=== PATIENT | female | born 1930 | race Caucasian/White ===

== ENCOUNTER → 2016-09-07 | Outpatient (CLI) | payer MEDICARE, OTHER ==
[~2016-09-07] MED LIST: CIPROFLOXACIN 55 ML OU; COUMADIN 3MG3 MG/TAB PO; DIFLUCAN PO; DIFLUCAN200 M1 PO; FUROSEMIDE20 MG PO; HYDROCORTISONE2.51 TOP; IMBRUVICA140 MG PO; IPRATROPIUM BROM3 M1 IH; KEFLEX750 M1 PO; LASIX20 M1 PO; LEVOFLOXACIN250 MG PO; LEVOFLOXACIN500 M1 PO; POTASSIUM CH2 MEQ/ML PO; PREDNISONE20 M1 PO; PREMARIN30 GM VG; SIMVASTATIN20 M1 PO; TRAMADOL 50 MG TAB PO; TUSS PO; WARFARIN SOD5 MG PO; XARELTO10 MG PO; XARELTO20 MG PO
== END ==
LOC: LAB 10:11
DX: C91.10 Chronic lymphocytic leukemia of B-cell type not having achieved remission (principal); Z86.718 Personal history of other venous thrombosis and embolism

== ENCOUNTER → 2016-10-12 | Outpatient (CLI) | payer MEDICARE, OTHER | LOC: LAB 16:55 | DX: N30.01 Acute cystitis with hematuria (principal); B96.89 Other specified bacterial agents as the cause of diseases classified elsewhere ==

== ENCOUNTER 2016-10-13 21:00 | Emergency (ER) | payer MEDICARE, OTHER ==
[~2016-10-13 21:00] MED LIST changes: -CIPROFLOXACIN 55 ML OU; -COUMADIN 3MG3 MG/TAB PO; -DIFLUCAN PO; -DIFLUCAN200 M1 PO; -HYDROCORTISONE2.51 TOP; -IPRATROPIUM BROM3 M1 IH; -KEFLEX750 M1 PO; -LASIX20 M1 PO; -POTASSIUM CH2 MEQ/ML PO; -PREDNISONE20 M1 PO; -PREMARIN30 GM VG; -SIMVASTATIN20 M1 PO; -TRAMADOL 50 MG TAB PO; -TUSS PO; -XARELTO10 MG PO; -XARELTO20 MG PO
[2016-10-13] MEDS ORDERED: IPRATROPIUM BROM3 M1 IH (22:56)
[2016-10-13] MEDS ORDERED: TUSS PO (22:56)
[2016-10-13] MEDS ORDERED: PREDNISONE20 M1 PO (22:56)
== END 2016-10-13 23:09 | disposition home or self-care (01) ==
LOC: ED 21:00
DX: J18.9 Pneumonia, unspecified organism (principal); Z85.9 Personal history of malignant neoplasm, unspecified
CPT/HCPCS: J7512

== ENCOUNTER → 2016-10-25 | Outpatient (CLI) | payer MEDICARE, OTHER ==
[~2016-10-25] MED LIST changes: +CIPROFLOXACIN 55 ML OU; +COUMADIN 3MG3 MG/TAB PO; +DIFLUCAN PO; +DIFLUCAN200 M1 PO; +HYDROCORTISONE2.51 TOP; +IPRATROPIUM BROM3 M1 IH; +KEFLEX750 M1 PO; +LASIX20 M1 PO; +POTASSIUM CH2 MEQ/ML PO; +PREDNISONE20 M1 PO; +PREMARIN30 GM VG; +SIMVASTATIN20 M1 PO; +TRAMADOL 50 MG TAB PO; +TUSS PO; +XARELTO10 MG PO; +XARELTO20 MG PO
== END ==
LOC: LAB 10:17
DX: C91.10 Chronic lymphocytic leukemia of B-cell type not having achieved remission (principal)

== ENCOUNTER → 2016-11-01 | Outpatient (CLI) | payer MEDICARE, OTHER | LOC: LAB 14:47 | DX: Z86.718 Personal history of other venous thrombosis and embolism (principal); C91.10 Chronic lymphocytic leukemia of B-cell type not having achieved remission ==

== ENCOUNTER → 2016-11-03 | Outpatient (CLI) | payer MEDICARE, OTHER | LOC: LAB 10:43 | DX: Z86.718 Personal history of other venous thrombosis and embolism (principal); C91.10 Chronic lymphocytic leukemia of B-cell type not having achieved remission; M81.0 Age-related osteoporosis without current pathological fracture ==

== ENCOUNTER → 2016-11-05 | Outpatient (CLI) | payer MEDICARE, OTHER | LOC: LAB 10:30 | DX: Z51.81 Encounter for therapeutic drug level monitoring (principal); Z79.01 Long term (current) use of anticoagulants; Z86.718 Personal history of other venous thrombosis and embolism; C91.10 Chronic lymphocytic leukemia of B-cell type not having achieved remission ==

== ENCOUNTER → 2016-11-11 | Outpatient (CLI) | payer MEDICARE, OTHER ==
[2016-10-13 23:18] VITALS: BP 130/76
== END ==
LOC: LAB 11:36
DX: Z51.81 Encounter for therapeutic drug level monitoring (principal); Z86.718 Personal history of other venous thrombosis and embolism; R09.89 Other specified symptoms and signs involving the circulatory and respiratory systems; R60.9 Edema, unspecified

== ENCOUNTER → 2016-11-23 | Outpatient (CLI) | payer MEDICARE, OTHER ==
[2016-10-13 23:18] VITALS: BP 130/76
== END ==
LOC: LAB 14:44
DX: Z51.81 Encounter for therapeutic drug level monitoring (principal); Z79.01 Long term (current) use of anticoagulants; Z86.718 Personal history of other venous thrombosis and embolism; C91.10 Chronic lymphocytic leukemia of B-cell type not having achieved remission

== ENCOUNTER → 2016-12-20 | Outpatient (CLI) | payer MEDICARE, OTHER ==
[2016-10-13 23:18] VITALS: BP 130/76
== END ==
LOC: LAB 14:36
DX: N30.01 Acute cystitis with hematuria (principal)

== ENCOUNTER → 2016-12-21 | Outpatient (CLI) | payer MEDICARE, OTHER ==
[2016-10-13 23:18] VITALS: BP 130/76
== END ==
LOC: LAB 14:24
DX: C91.10 Chronic lymphocytic leukemia of B-cell type not having achieved remission (principal); Z86.718 Personal history of other venous thrombosis and embolism; Z79.01 Long term (current) use of anticoagulants; Z51.81 Encounter for therapeutic drug level monitoring

== ENCOUNTER → 2017-01-20 | Outpatient (CLI) | payer MEDICARE, OTHER ==
[2016-10-13 23:18] VITALS: BP 130/76
== END ==
LOC: LAB 13:48
DX: C91.10 Chronic lymphocytic leukemia of B-cell type not having achieved remission (principal)

== ENCOUNTER 2017-01-27 08:01 | Inpatient (IN) | payer MEDICARE, OTHER ==
[~2017-01-27] VITALS: Ht 162.6 cm; Wt 64.5 kg
[~2017-01-27 08:01] MED LIST changes: -CIPROFLOXACIN 55 ML OU; -COUMADIN 3MG3 MG/TAB PO; -DIFLUCAN PO; -DIFLUCAN200 M1 PO; -HYDROCORTISONE2.51 TOP; -KEFLEX750 M1 PO; -LASIX20 M1 PO; -POTASSIUM CH2 MEQ/ML PO; -PREMARIN30 GM VG; -SIMVASTATIN20 M1 PO; -TRAMADOL 50 MG TAB PO; -XARELTO10 MG PO; -XARELTO20 MG PO
[2017-02-13] MEDS ORDERED: KEFLEX750 M1 PO (10:45)
[2017-02-13] MEDS ORDERED: COUMADIN 3MG3 MG/TAB PO ×2 (10:45→17:39)
[2017-02-13] MEDS ORDERED: DIFLUCAN PO (10:46)
[2017-02-13 15:44] VITALS: BP 156/60
[2017-02-13] MEDS ORDERED: IMBRUVICA140 MG PO (17:37)
[2017-02-13] MEDS ORDERED: DIFLUCAN200 M1 PO (17:38)
[2017-02-13] MEDS ORDERED: WARFARIN SOD5 MG PO (17:38)
[2017-02-13] MEDS ORDERED: LASIX20 M1 PO (17:39)
[2017-02-13] MEDS ORDERED: TRAMADOL 50 MG TAB PO (17:39)
[2017-02-13] MEDS ORDERED: SIMVASTATIN20 M1 PO (17:40)
[2017-02-13] MEDS ORDERED: POTASSIUM CH2 MEQ/ML PO (17:40)
[2017-02-13 18:33] VITALS: BP 128/54
[2017-02-14 06:24] VITALS: BP 119/49
[2017-02-14 18:13] VITALS: BP 121/55
[2017-02-15 06:18] VITALS: BP 121/54
[2017-02-15 18:15] VITALS: BP 121/55
[2017-02-16 06:16] VITALS: BP 106/56
[2017-02-16] MEDS ORDERED: HYDROCORTISONE2.51 TOP (08:09)
[2017-02-16] MEDS ORDERED: PREMARIN30 GM VG (08:09)
== END 2017-02-16 14:05 | disposition home health service (06) | DRG 758 ==
LOC: MED/SURG 08:01
PROVIDERS: ADMIT Family Medicine
DX: B37.49 Other urogenital candidiasis (principal); C91.10 Chronic lymphocytic leukemia of B-cell type not having achieved remission; N90.4 Leukoplakia of vulva; I10 Essential (primary) hypertension; E78.5 Hyperlipidemia, unspecified; R53.81 Other malaise; F03.90 Unspecified dementia, unspecified severity, without behavioral disturbance, psychotic disturbance, mood disturbance, and anxiety; Z79.01 Long term (current) use of anticoagulants

== ENCOUNTER → 2017-02-07 | Outpatient (CLI) | payer MEDICARE, OTHER ==
[2016-10-13 23:18] VITALS: BP 130/76
[~2017-02-07] MED LIST changes: +CIPROFLOXACIN 55 ML OU; +COUMADIN 3MG3 MG/TAB PO; +DIFLUCAN PO; +DIFLUCAN200 M1 PO; +HYDROCORTISONE2.51 TOP; +KEFLEX750 M1 PO; +LASIX20 M1 PO; +POTASSIUM CH2 MEQ/ML PO; +PREMARIN30 GM VG; +SIMVASTATIN20 M1 PO; +TRAMADOL 50 MG TAB PO; +XARELTO10 MG PO; +XARELTO20 MG PO
== END ==
LOC: LAB 12:44
DX: N30.01 Acute cystitis with hematuria (principal); B37.41 Candidal cystitis and urethritis

== ENCOUNTER 2017-02-10 18:52 | Emergency (ER) | payer MEDICARE, OTHER ==
[~2017-02-10] VITALS: Wt 66.8 kg
[~2017-02-10 18:52] MED LIST changes: -CIPROFLOXACIN 55 ML OU; -COUMADIN 3MG3 MG/TAB PO; -DIFLUCAN PO; -DIFLUCAN200 M1 PO; -HYDROCORTISONE2.51 TOP; -KEFLEX750 M1 PO; -LASIX20 M1 PO; -POTASSIUM CH2 MEQ/ML PO; -PREMARIN30 GM VG; -SIMVASTATIN20 M1 PO; -TRAMADOL 50 MG TAB PO; -XARELTO10 MG PO; -XARELTO20 MG PO
[2017-02-10 20:35] VITALS: BP 139/78
== END 2017-02-10 20:25 | disposition home or self-care (01) ==
LOC: ED 18:52
DX: R31.0 Gross hematuria (principal); B37.49 Other urogenital candidiasis; C91.10 Chronic lymphocytic leukemia of B-cell type not having achieved remission; Z86.718 Personal history of other venous thrombosis and embolism; Z79.01 Long term (current) use of anticoagulants

== ENCOUNTER 2017-02-13 10:26 | Emergency (ER) | payer MEDICARE, OTHER ==
[2017-02-13] MEDS ORDERED: COUMADIN 3MG3 MG/TAB PO ×2 (10:45→17:39)
[2017-02-13] MEDS ORDERED: KEFLEX750 M1 PO (10:45)
[2017-02-13] MEDS ORDERED: DIFLUCAN PO (10:46)
[2017-02-13 14:00] VITALS: BP 146/62
[2017-02-13] MEDS ORDERED: IMBRUVICA140 MG PO (17:37)
[2017-02-13] MEDS ORDERED: DIFLUCAN200 M1 PO (17:38)
[2017-02-13] MEDS ORDERED: WARFARIN SOD5 MG PO (17:38)
[2017-02-13] MEDS ORDERED: LASIX20 M1 PO (17:39)
[2017-02-13] MEDS ORDERED: TRAMADOL 50 MG TAB PO (17:39)
[2017-02-13] MEDS ORDERED: POTASSIUM CH2 MEQ/ML PO (17:40)
[2017-02-13] MEDS ORDERED: SIMVASTATIN20 M1 PO (17:40)
== END 2017-02-13 15:45 | disposition swing bed (61) ==
LOC: ED 10:26
DX: R53.81 Other malaise (principal); R30.0 Dysuria; N39.0 Urinary tract infection, site not specified; C91.10 Chronic lymphocytic leukemia of B-cell type not having achieved remission; F03.90 Unspecified dementia, unspecified severity, without behavioral disturbance, psychotic disturbance, mood disturbance, and anxiety; Z87.442 Personal history of urinary calculi; B37.49 Other urogenital candidiasis; Z79.01 Long term (current) use of anticoagulants; N76.2 Acute vulvitis
CPT/HCPCS: A4353

== ENCOUNTER → 2017-02-24 | Outpatient (CLI) | payer MEDICARE, OTHER ==
[2017-02-16 06:16] VITALS: BP 106/56
[~2017-02-24] MED LIST changes: +CIPROFLOXACIN 55 ML OU; +COUMADIN 3MG3 MG/TAB PO; +DIFLUCAN PO; +DIFLUCAN200 M1 PO; +HYDROCORTISONE2.51 TOP; +KEFLEX750 M1 PO; +LASIX20 M1 PO; +POTASSIUM CH2 MEQ/ML PO; +PREMARIN30 GM VG; +SIMVASTATIN20 M1 PO; +TRAMADOL 50 MG TAB PO; +XARELTO10 MG PO; +XARELTO20 MG PO
== END ==
LOC: LAB 15:20
DX: Z86.718 Personal history of other venous thrombosis and embolism (principal)

== ENCOUNTER → 2017-02-28 | Outpatient (CLI) | payer MEDICARE, OTHER ==
[2017-02-16 06:16] VITALS: BP 106/56
== END ==
LOC: LAB 13:13
DX: Z86.718 Personal history of other venous thrombosis and embolism (principal); Z79.01 Long term (current) use of anticoagulants

== ENCOUNTER → 2017-03-02 | Outpatient (CLI) | payer MEDICARE, OTHER ==
[2017-02-16 06:16] VITALS: BP 106/56
== END ==
LOC: LAB 13:04
DX: Z51.81 Encounter for therapeutic drug level monitoring (principal); Z79.01 Long term (current) use of anticoagulants; Z86.718 Personal history of other venous thrombosis and embolism; C91.10 Chronic lymphocytic leukemia of B-cell type not having achieved remission

== ENCOUNTER → 2017-03-10 | Outpatient (CLI) | payer MEDICARE, OTHER ==
[2017-02-16 06:16] VITALS: BP 106/56
== END ==
LOC: LAB 11:05
DX: E86.0 Dehydration (principal); Z79.01 Long term (current) use of anticoagulants

== ENCOUNTER 2017-03-11 15:55 | Emergency (ER) | payer MEDICARE, OTHER ==
[~2017-03-11] VITALS: Ht 165.1 cm; Wt 65.0 kg
[~2017-03-11 15:55] MED LIST changes: -CIPROFLOXACIN 55 ML OU; -XARELTO10 MG PO; -XARELTO20 MG PO
[2017-03-11] MEDS ORDERED: CIPROFLOXACIN 55 ML OU (20:24)
[2017-03-11] MEDS ORDERED: DIFLUCAN200 M1 PO (20:24)
[2017-03-11 20:35] VITALS: BP 112/72
[2017-03-11] MEDS ORDERED: XARELTO10 MG PO (21:45)
[2017-03-11] MEDS ORDERED: XARELTO20 MG PO (21:48)
== END 2017-03-11 20:35 | disposition home or self-care (01) ==
LOC: ED 15:55
DX: E86.9 Volume depletion, unspecified (principal); E87.1 Hypo-osmolality and hyponatremia; N39.0 Urinary tract infection, site not specified; F03.90 Unspecified dementia, unspecified severity, without behavioral disturbance, psychotic disturbance, mood disturbance, and anxiety; C91.10 Chronic lymphocytic leukemia of B-cell type not having achieved remission; H10.9 Unspecified conjunctivitis; Z79.01 Long term (current) use of anticoagulants; Z86.718 Personal history of other venous thrombosis and embolism; L89.322 Pressure ulcer of left buttock, stage 2
CPT/HCPCS: A4353; J7030

== ENCOUNTER → 2017-03-15 | Outpatient (CLI) | payer MEDICARE, OTHER ==
[2017-03-11 20:35] VITALS: BP 112/72
[~2017-03-15] MED LIST changes: +CIPROFLOXACIN 55 ML OU; +XARELTO10 MG PO; +XARELTO20 MG PO
== END ==
LOC: RAD 10:40
DX: R05 Cough (principal); R91.8 Other nonspecific abnormal finding of lung field

== ENCOUNTER → 2017-03-24 | Outpatient (CLI) | payer MEDICARE, OTHER ==
[2017-03-11 20:35] VITALS: BP 112/72
== END ==
LOC: LAB 10:08
DX: C91.10 Chronic lymphocytic leukemia of B-cell type not having achieved remission (principal); B37.41 Candidal cystitis and urethritis

== ENCOUNTER → 2017-03-28 | Outpatient (CLI) | payer MEDICARE, OTHER ==
[2017-03-11 20:35] VITALS: BP 112/72
== END ==
LOC: LAB 14:22
DX: N30.00 Acute cystitis without hematuria (principal)

== ENCOUNTER → 2017-04-12 | Outpatient (CLI) | payer MEDICARE, OTHER | LOC: LAB 16:15 | DX: Z87.440 Personal history of urinary (tract) infections (principal) ==

== ENCOUNTER → 2017-05-05 | Outpatient (CLI) | payer MEDICARE, OTHER | LOC: RAD 08:59 | DX: N20.0 Calculus of kidney (principal) ==

== ENCOUNTER → 2017-05-05 | Outpatient (CLI) | payer MEDICARE, OTHER | LOC: LAB 18:49 | DX: N39.0 Urinary tract infection, site not specified (principal) ==

== ENCOUNTER → 2017-05-16 | Outpatient (CLI) | payer MEDICARE, OTHER | LOC: LAB 10:10 | DX: C91.10 Chronic lymphocytic leukemia of B-cell type not having achieved remission (principal); Z79.01 Long term (current) use of anticoagulants; I82.A11 Acute embolism and thrombosis of right axillary vein; M81.0 Age-related osteoporosis without current pathological fracture; C85.80 Other specified types of non-Hodgkin lymphoma, unspecified site ==

== ENCOUNTER → 2017-06-01 | Outpatient (CLI) | payer MEDICARE, OTHER ==
[~2017-06-01] MED LIST changes: +AMLODIPINE BESYL5 MG PO; +RISPERDAL 0.20.25 MG PO
== END ==
LOC: LAB 20:02
DX: Z01.83 Encounter for blood typing (principal); C91.10 Chronic lymphocytic leukemia of B-cell type not having achieved remission

== ENCOUNTER → 2017-06-01 | Outpatient (CLI) | payer MEDICARE, OTHER ==
[2017-06-01 13:18] LABS: EOS # 0.2 (0.04-0.40); EOS % 1.1 % (1.0-5.0); MEAN CELL VOLUME 88 fl (78-100); MEAN CORPUSCULAR HEMOGLOBIN 25 pg (27-31); MEAN PLATELET VOLUME 10.7 fl (7.4-10.4); MONO # 0.9 (0.20-0.80); NEU # 5.8 (1.40-6.50); PLATELET COUNT 360 K/mm3 (130-400); RED BLOOD COUNT 2.53 M/mm3 (4.10-5.30); WHITE BLOOD COUNT 14.1 K/mm3 (4.8-10.8)
[2017-06-01 14:11] LABS: HEMATOCRIT 22.3 % (37.0-47.0); HEMOGLOBIN 6.2 g/dL (12.5-16.0); LYMPH# 7.2 (1.50-4.00); MEAN CORPUSCULAR HGB CONC 28 g/dL (33-37); RED CELL DISTRIBUTION WIDTH 19.6 % (11.5-14.5)
== END ==
LOC: LAB 13:07
PROVIDERS: Internal Medicine Hematology & Oncology
DX: C91.10 Chronic lymphocytic leukemia of B-cell type not having achieved remission (principal); C85.90 Non-Hodgkin lymphoma, unspecified, unspecified site; M81.0 Age-related osteoporosis without current pathological fracture

== ENCOUNTER → 2017-06-02 | Outpatient (CLI) | payer MEDICARE, OTHER ==
[~2017-06-02] VITALS: Ht 165.1 cm; Wt 65.0 kg
[2017-06-02] VITALS (10 sets, daily range): BP systolic 105–137; BP diastolic 54–64
--- NOTE | 2017-06-02 10:15 | NUR ---
transfusion is patent, patient describes, "i have to scratch my nose" there are no other c/o.
--- NOTE | 2017-06-02 10:20 | NUR ---
transfusion patent patient without symptom/sign of reaction, blood increased to 125ml/hr.
--- NOTE | 2017-06-02 10:35 | NUR ---
patient continues withouit s/s of reaction, transfusion increased to 225ml/hr
--- NOTE | 2017-06-02 10:45 | NUR ---
transfusion remains patent, without further c/o, currently at 225ml/hr
--- NOTE | 2017-06-02 10:52 | NUR ---
contacted Dr. Rosario at [facility], left message requesting follow-up for patient.
--- NOTE | 2017-06-02 12:20 | NUR ---
discussed with patient need for follow-up H&H, and not yet receiving an order for this, patient is aware and staets she will expect a phone call later today in regards to follow-up.
--- NOTE | 2017-06-02 12:32 | NUR ---
dismissed per w/c to care of [id number], she states she feels "woosey" but this is normal for her, to POV and to self care
== END ==
LOC: AMSURD 09:26
DX: C91.10 Chronic lymphocytic leukemia of B-cell type not having achieved remission (principal)
CPT/HCPCS: J7050

== ENCOUNTER → 2017-06-03 | Outpatient (CLI) | payer MEDICARE, OTHER ==
[2017-06-02 12:35] VITALS: BP 137/64
[2017-06-03 11:18] LABS: HEMATOCRIT 27.6 % (37.0-47.0)
[2017-06-03 11:23] LABS: HEMOGLOBIN 7.9 g/dL (12.5-16.0)
== END ==
LOC: LAB 10:43
PROVIDERS: Internal Medicine
DX: C91.10 Chronic lymphocytic leukemia of B-cell type not having achieved remission (principal)

== ENCOUNTER → 2017-06-15 | Outpatient (CLI) | payer MEDICARE, OTHER ==
[2017-06-02 12:35] VITALS: BP 137/64
[2017-06-15 12:08] LABS: EOS # 0.1 (0.04-0.40); EOS % 0.6 % (1.0-5.0); HEMATOCRIT 25.8 % (37.0-47.0); MEAN CELL VOLUME 86 fl (78-100); MEAN CORPUSCULAR HEMOGLOBIN 25 pg (27-31); MEAN PLATELET VOLUME 10.4 fl (7.4-10.4); MONO # 1.2 (0.20-0.80); NEU # 7.8 (1.40-6.50); PLATELET COUNT 338 K/mm3 (130-400); RED BLOOD COUNT 2.99 M/mm3 (4.10-5.30); WHITE BLOOD COUNT 14.4 K/mm3 (4.8-10.8)
[2017-06-15 12:12] LABS: PROTHROMBIN TIME 11.7 SECONDS (9.0-12.0)
[2017-06-15 12:13] LABS: HEMOGLOBIN 7.5 g/dL (12.5-16.0); LYMPH# 5.2 (1.50-4.00); MEAN CORPUSCULAR HGB CONC 29 g/dL (33-37); RED CELL DISTRIBUTION WIDTH 18.7 % (11.5-14.5)
[2017-06-15 12:15] LABS: BUN/CREATININE RATIO 21.8 (6.0-26.0); POTASSIUM 4.4 mmol/L (3.6-5.0)
== END ==
LOC: LAB 11:34
PROVIDERS: Nurse Practitioner Family
DX: N30.01 Acute cystitis with hematuria (principal)

== ENCOUNTER → 2017-06-30 | Outpatient (CLI) | payer MEDICARE, OTHER ==
[2017-06-02 12:35] VITALS: BP 137/64
[2017-06-30 12:40] LABS: HEMATOCRIT 26.5 % (37.0-47.0)
[2017-06-30 12:51] LABS: HEMOGLOBIN 7.5 g/dL (12.5-16.0)
== END ==
LOC: LAB 12:07
PROVIDERS: Nurse Practitioner Family
DX: D64.9 Anemia, unspecified (principal); C91.10 Chronic lymphocytic leukemia of B-cell type not having achieved remission; N30.00 Acute cystitis without hematuria

== ENCOUNTER → 2017-07-12 | Outpatient (CLI) | payer MEDICARE, OTHER ==
[2017-06-02 12:35] VITALS: BP 137/64
[2017-07-12 10:23] LABS: HEMATOCRIT 25.5 % (37.0-47.0); MEAN CELL VOLUME 86 fl (78-100); MEAN PLATELET VOLUME 10.2 fl (7.4-10.4); PLATELET COUNT 338 K/mm3 (130-400); RED BLOOD COUNT 2.96 M/mm3 (4.10-5.30); WHITE BLOOD COUNT 7.7 K/mm3 (4.8-10.8)
[2017-07-12 10:31] LABS: BUN/CREATININE RATIO 20.1 (6.0-26.0); CALCIUM 9.6 mg/dL (8.4-10.2); POTASSIUM 5.2 mmol/L (3.6-5.0)
[2017-07-12 10:38] LABS: HEMOGLOBIN 7.2 g/dL (12.5-16.0); MEAN CORPUSCULAR HEMOGLOBIN 24 pg (27-31); MEAN CORPUSCULAR HGB CONC 28 g/dL (33-37); RED CELL DISTRIBUTION WIDTH 18.5 % (11.5-14.5)
[2017-07-12 10:39] LABS: LYMPHOCYTE 33 % (20-51); MONOCYTE 7 % (3-10); NEUTROPHILS 57 % (42-75)
[2017-07-12 10:41] LABS: MICROCYTOSIS 1+; OVALOCYTES 1+
== END ==
LOC: RAD 10:04
PROVIDERS: Urology
DX: C91.10 Chronic lymphocytic leukemia of B-cell type not having achieved remission (principal); N30.20 Other chronic cystitis without hematuria; N20.0 Calculus of kidney

== ENCOUNTER → 2017-07-18 | Outpatient (CLI) | payer MEDICARE, OTHER ==
[2017-06-02 12:35] VITALS: BP 137/64
== END ==
LOC: LAB 08:04 → RAD 08:04
DX: N20.0 Calculus of kidney (principal)

== ENCOUNTER → 2017-07-28 | Outpatient (CLI) | payer MEDICARE, OTHER ==
[2017-06-02 12:35] VITALS: BP 137/64
[2017-07-28 23:13] LABS: URINE APPEARANCE CLOUDY; URINE BILIRUBIN NEGATIVE (NEGATIVE); URINE BLOOD 250 ery/uL (NEGATIVE); URINE COLOR YELLOW; URINE GLUCOSE NEGATIVE (NEGATIVE); URINE KETONE NEGATIVE (NEGATIVE); URINE LEUKOCYTE ESTERASE 2+ (NEGATIVE); URINE NITRATE NEGATIVE (NEGATIVE); URINE PROTEIN(semi-quant) 2+ mg/dL (NEGATIVE); URINE UROBILINOGEN NORMAL (NORMAL)
[2017-07-28 23:14] LABS: URINE WBC >50 /hpf (0-3)
== END ==
LOC: LAB 17:08
PROVIDERS: Nurse Practitioner Family
DX: Z87.440 Personal history of urinary (tract) infections (principal); R53.81 Other malaise

== ENCOUNTER → 2017-08-08 | Outpatient (CLI) | payer MEDICARE, OTHER ==
[2017-06-02 12:35] VITALS: BP 137/64
== END ==
LOC: RAD 10:35
DX: N20.0 Calculus of kidney (principal)

== ENCOUNTER → 2017-08-10 | Outpatient (CLI) | payer MEDICARE, OTHER ==
[2017-06-02 12:35] VITALS: BP 137/64
[2017-08-10 10:28] LABS: EOS # 0.1 (0.04-0.40); HEMATOCRIT 29.2 % (37.0-47.0); HEMOGLOBIN 8.5 g/dL (12.5-16.0); LYMPH# 3.1 (1.50-4.00); MEAN CELL VOLUME 82 fl (78-100); MEAN PLATELET VOLUME 9.8 fl (7.4-10.4); MONO # 1.4 (0.20-0.80); NEU # 7.7 (1.40-6.50); PLATELET COUNT 336 K/mm3 (130-400); RED BLOOD COUNT 3.55 M/mm3 (4.10-5.30); WHITE BLOOD COUNT 12.5 K/mm3 (4.8-10.8)
[2017-08-10 10:39] LABS: MEAN CORPUSCULAR HEMOGLOBIN 24 pg (27-31); MEAN CORPUSCULAR HGB CONC 29 g/dL (33-37); RED CELL DISTRIBUTION WIDTH 20.5 % (11.5-14.5)
[2017-08-10 10:48] LABS: PROTHROMBIN TIME 13.9 SECONDS (9.0-12.0)
== END ==
LOC: LAB 07-06 15:52
PROVIDERS: Nurse Practitioner Family
DX: C91.10 Chronic lymphocytic leukemia of B-cell type not having achieved remission (principal); M81.0 Age-related osteoporosis without current pathological fracture; D64.9 Anemia, unspecified; Z86.718 Personal history of other venous thrombosis and embolism

== ENCOUNTER → 2017-09-12 | Outpatient (CLI) | payer MEDICARE, OTHER ==
[2017-06-02 12:35] VITALS: BP 137/64
[2017-09-12 09:53] LABS: HEMATOCRIT 26.2 % (37.0-47.0); MEAN CELL VOLUME 89 fl (78-100); PLATELET COUNT 307 K/mm3 (130-400); RED BLOOD COUNT 2.95 M/mm3 (4.10-5.30); WHITE BLOOD COUNT 8.9 K/mm3 (4.8-10.8)
[2017-09-12 10:12] LABS: BUN/CREATININE RATIO 14.4 (6.0-26.0); CALCIUM 8.3 mg/dL (8.4-10.2); POTASSIUM 4.5 mmol/L (3.6-5.0)
[2017-09-12 10:30] LABS: HEMOGLOBIN 7.1 g/dL (12.5-16.0); MEAN CORPUSCULAR HEMOGLOBIN 24 pg (27-31); MEAN CORPUSCULAR HGB CONC 27 g/dL (33-37); RED CELL DISTRIBUTION WIDTH 19.6 % (11.5-14.5)
[2017-09-12 10:33] LABS: LYMPHOCYTE 14 % (20-51); MONOCYTE 16 % (3-10); NEUTROPHILS 67 % (42-75)
[2017-09-12 23:47] LABS: FOLATE (FOLIC ACID) 6.1 ng/mL (7.0-31.4)
== END ==
LOC: LAB 09:28
PROVIDERS: Nurse Practitioner Family
DX: C91.10 Chronic lymphocytic leukemia of B-cell type not having achieved remission (principal); M81.0 Age-related osteoporosis without current pathological fracture; C85.80 Other specified types of non-Hodgkin lymphoma, unspecified site

== ENCOUNTER → 2017-09-22 | Outpatient (CLI) | payer MEDICARE, OTHER ==
[2017-06-02 12:35] VITALS: BP 137/64
[2017-09-22 10:17] LABS: HEMATOCRIT 27.1 % (37.0-47.0); MEAN CELL VOLUME 89 fl (78-100); MEAN CORPUSCULAR HEMOGLOBIN 25 pg (27-31); MEAN PLATELET VOLUME 9.3 fl (7.4-10.4); PLATELET COUNT 333 K/mm3 (130-400); RED BLOOD COUNT 3.04 M/mm3 (4.10-5.30); WHITE BLOOD COUNT 8.5 K/mm3 (4.8-10.8)
[2017-09-22 10:27] LABS: HEMOGLOBIN 7.5 g/dL (12.5-16.0); LYMPHOCYTE 18 % (20-51); MEAN CORPUSCULAR HGB CONC 28 g/dL (33-37); MONOCYTE 12 % (3-10); NEUTROPHILS 68 % (42-75); RED CELL DISTRIBUTION WIDTH 18.5 % (11.5-14.5)
[2017-09-22 10:29] LABS: HYPOCHROMIA 1+
[2017-09-22 10:38] LABS: PROTHROMBIN TIME 11.9 SECONDS (9.0-12.0)
== END ==
LOC: LAB 09:57
PROVIDERS: Nurse Practitioner Family
DX: D64.9 Anemia, unspecified (principal); C91.10 Chronic lymphocytic leukemia of B-cell type not having achieved remission; Z86.718 Personal history of other venous thrombosis and embolism; Z88.1 Allergy status to other antibiotic agents; Z88.2 Allergy status to sulfonamides

== ENCOUNTER → 2017-10-12 | Outpatient (CLI) | payer MEDICARE, OTHER ==
[2017-06-02 12:35] VITALS: BP 137/64
[2017-10-12 10:44] LABS: BASO # 0.1 (0.02-0.10); EOS # 0.2 (0.04-0.40); EOS % 1.5 % (1.0-5.0); HEMOGLOBIN 8.1 g/dL (12.5-16.0); MEAN CELL VOLUME 87 fl (78-100); MEAN PLATELET VOLUME 9.6 fl (7.4-10.4); MONO # 1.1 (0.20-0.80); NEU # 8.2 (1.40-6.50); PLATELET COUNT 290 K/mm3 (130-400); RED BLOOD COUNT 3.35 M/mm3 (4.10-5.30); RED CELL DISTRIBUTION WIDTH 17.1 % (11.5-14.5); WHITE BLOOD COUNT 11.7 K/mm3 (4.8-10.8)
[2017-10-12 10:53] LABS: BUN/CREATININE RATIO 17.5 (6.0-26.0); CALCIUM 9.2 mg/dL (8.4-10.2); POTASSIUM 4.4 mmol/L (3.6-5.0); TOTAL BILIRUBIN 0.3 mg/dL (0.2-1.3); TOTAL PROTEIN 5.9 g/dL (6.3-8.2)
[2017-10-12 10:54] LABS: MEAN CORPUSCULAR HEMOGLOBIN 24 pg (27-31); MEAN CORPUSCULAR HGB CONC 28 g/dL (33-37)
== END ==
LOC: LAB 10:29
PROVIDERS: Internal Medicine Hematology & Oncology
DX: C91.10 Chronic lymphocytic leukemia of B-cell type not having achieved remission (principal); C85.80 Other specified types of non-Hodgkin lymphoma, unspecified site; M81.0 Age-related osteoporosis without current pathological fracture

== ENCOUNTER → 2017-10-13 | Outpatient (CLI) | payer MEDICARE, OTHER ==
[2017-06-02 12:35] VITALS: BP 137/64
== END ==
LOC: LAB 15:41
DX: N30.01 Acute cystitis with hematuria (principal); Z88.1 Allergy status to other antibiotic agents; Z88.2 Allergy status to sulfonamides

== ENCOUNTER → 2017-10-26 | Outpatient (CLI) | payer MEDICARE, OTHER ==
[2017-06-02 12:35] VITALS: BP 137/64
== END ==
LOC: LAB 16:39
PROVIDERS: Nurse Practitioner
DX: C85.80 Other specified types of non-Hodgkin lymphoma, unspecified site (principal); C91.10 Chronic lymphocytic leukemia of B-cell type not having achieved remission; M81.0 Age-related osteoporosis without current pathological fracture

== ENCOUNTER → 2017-11-09 | Outpatient (CLI) | payer MEDICARE, OTHER ==
[2017-06-02 12:35] VITALS: BP 137/64
[2017-11-09 17:25] LABS: EOS # 0.1 (0.04-0.40); EOS % 0.8 % (1.0-5.0); HEMATOCRIT 30.3 % (37.0-47.0); HEMOGLOBIN 8.6 g/dL (12.5-16.0); LYMPH# 1.7 (1.50-4.00); MEAN CELL VOLUME 87 fl (78-100); MEAN CORPUSCULAR HEMOGLOBIN 25 pg (27-31); MEAN PLATELET VOLUME 11.2 fl (7.4-10.4); MONO # 0.9 (0.20-0.80); NEU # 6.2 (1.40-6.50); PLATELET COUNT 264 K/mm3 (130-400); RED BLOOD COUNT 3.48 M/mm3 (4.10-5.30); RED CELL DISTRIBUTION WIDTH 17.2 % (11.5-14.5); WHITE BLOOD COUNT 8.9 K/mm3 (4.8-10.8)
[2017-11-09 17:26] LABS: MEAN CORPUSCULAR HGB CONC 28 g/dL (33-37)
[2017-11-09 17:38] LABS: ALBUMIN 3.1 g/dL (3.5-5.0); BUN/CREATININE RATIO 19.6 (6.0-26.0); CALCIUM 9.2 mg/dL (8.4-10.2); POTASSIUM 4.3 mmol/L (3.6-5.0); TOTAL BILIRUBIN 0.2 mg/dL (0.2-1.3); TOTAL PROTEIN 5.6 g/dL (6.3-8.2)
== END ==
LOC: LAB 16:34
PROVIDERS: Nurse Practitioner
DX: C91.10 Chronic lymphocytic leukemia of B-cell type not having achieved remission (principal); M81.0 Age-related osteoporosis without current pathological fracture; C85.80 Other specified types of non-Hodgkin lymphoma, unspecified site

== ENCOUNTER → 2017-11-17 | Outpatient (CLI) | payer MEDICARE, OTHER ==
[2017-06-02 12:35] VITALS: BP 137/64
[2017-11-17 14:09] LABS: URINE APPEARANCE CLOUDY; URINE BILIRUBIN NEGATIVE (NEGATIVE); URINE BLOOD 250 ery/uL (NEGATIVE); URINE COLOR YELLOW; URINE GLUCOSE NEGATIVE (NEGATIVE); URINE KETONE NEGATIVE (NEGATIVE); URINE LEUKOCYTE ESTERASE 2+ (NEGATIVE); URINE NITRATE POSITIVE (NEGATIVE); URINE PROTEIN(semi-quant) 2+ mg/dL (NEGATIVE); URINE UROBILINOGEN NORMAL (NORMAL)
[2017-11-17 14:10] LABS: URINE WBC >50 /hpf (0-3)
== END ==
LOC: LAB 13:50
PROVIDERS: Nurse Practitioner
DX: R30.0 Dysuria (principal); Z87.440 Personal history of urinary (tract) infections

== ENCOUNTER 2017-12-06 12:27 | Observation (INO) | payer MEDICARE, OTHER ==
[2017-12-06] VITALS (26 sets, daily range): BP systolic 104–144; BP diastolic 43–80
[~2017-12-06] VITALS: Ht 167.6 cm; Wt 56.4 kg
[~2017-12-06 12:27] MED LIST changes: -DONEPEZIL HCL10 MG PO; -IMBRUVICA280 MG PO; -MYRBETRIQ25 MG PO; -ULTRAM50 M1 PO
[2017-12-06 15:33] LABS: ALBUMIN 2.8 g/dL (3.5-5.0); BUN/CREATININE RATIO 40.7 (6.0-26.0); CALCIUM 9.8 mg/dL (8.4-10.2); POTASSIUM 4.9 mmol/L (3.6-5.0); TOTAL BILIRUBIN 0.2 mg/dL (0.2-1.3); TOTAL PROTEIN 5.4 g/dL (6.3-8.2)
[2017-12-06] MEDS ORDERED: IMBRUVICA280 MG PO (16:48)
[2017-12-06] MEDS ORDERED: DONEPEZIL HCL10 MG PO (16:50)
--- NOTE | 2017-12-06 19:14 | NUR ---
report to acosta more
[2017-12-07] VITALS: BP 116/54
[2017-12-07 00:20] VITALS: BP 126/58
[2017-12-07 03:00] VITALS: BP 151/70
[2017-12-07 06:33] VITALS: BP 148/71
[2017-12-07 07:04] LABS: BASO # 0.1 (0.02-0.10); EOS # 0.1 (0.04-0.40); EOS % 0.7 % (1.0-5.0); HEMATOCRIT 27.1 % (37.0-47.0); HEMOGLOBIN 8.5 g/dL (12.5-16.0); LYMPH# 1.9 (1.50-4.00); MEAN CELL VOLUME 86 fl (78-100); MEAN CORPUSCULAR HEMOGLOBIN 27 pg (27-31); MEAN CORPUSCULAR HGB CONC 31 g/dL (33-37); MEAN PLATELET VOLUME 10.4 fl (7.4-10.4); MONO # 1.2 (0.20-0.80); NEU # 8.9 (1.40-6.50); PLATELET COUNT 246 K/mm3 (130-400); RED BLOOD COUNT 3.15 M/mm3 (4.10-5.30); RED CELL DISTRIBUTION WIDTH 15.4 % (11.5-14.5); WHITE BLOOD COUNT 12.5 K/mm3 (4.8-10.8)
--- NOTE | 2017-12-07 07:20 | NUR ---
Pt alert and oriented and pleasant. Reports she is feeling better and some stronger today. Pt ambulates independently with slow steady gait. Pt does grimace and grab at low abd/pelvic area while sitting in recliner. Pt then requests pain pill
[2017-12-07] MEDS ORDERED: ULTRAM50 M1 PO (08:00)
[2017-12-07] MEDS ORDERED: MYRBETRIQ25 MG PO (08:00)
--- NOTE | 2017-12-07 10:49 | NUR ---
Pt has caregivers in her home. Home Health services are not needed at this time.
[2017-12-07 11:30] VITALS: BP 126/96
--- NOTE | 2017-12-07 12:35 | NUR ---
Discharge instructions reviewed with pt and her friend Dilma. Both verbalizes understanding. Pt dismissed with friend via wheelchair with all belongings
== END 2017-12-07 12:33 | disposition home or self-care (01) ==
LOC: ED 12:27 → MED/SURG 14:10
PROVIDERS: Nurse Practitioner Family; ADMIT Physician Assistant
DX: C91.10 Chronic lymphocytic leukemia of B-cell type not having achieved remission (principal); D63.8 Anemia in other chronic diseases classified elsewhere; G30.9 Alzheimer's disease, unspecified; F02.80 Dementia in other diseases classified elsewhere, unspecified severity, without behavioral disturbance, psychotic disturbance, mood disturbance, and anxiety; Z79.01 Long term (current) use of anticoagulants; Z86.718 Personal history of other venous thrombosis and embolism; N32.89 Other specified disorders of bladder; Z87.440 Personal history of urinary (tract) infections
CPT/HCPCS: G0378; J1940; P9016

== ENCOUNTER → 2017-12-06 | Outpatient (CLI) | payer MEDICARE, OTHER ==
[2017-06-02 12:35] VITALS: BP 137/64
[~2017-12-06] MED LIST changes: +DONEPEZIL HCL10 MG PO; +IMBRUVICA280 MG PO; +MYRBETRIQ25 MG PO; +ULTRAM50 M1 PO
[2017-12-06 12:19] LABS: BASO # 0.1 (0.02-0.10); EOS % 0.1 % (1.0-5.0); MEAN CELL VOLUME 86 fl (78-100); MEAN PLATELET VOLUME 10.2 fl (7.4-10.4); MONO # 0.9 (0.20-0.80); PLATELET COUNT 314 K/mm3 (130-400); RED CELL DISTRIBUTION WIDTH 17.5 % (11.5-14.5); WHITE BLOOD COUNT 14.2 K/mm3 (4.8-10.8)
[2017-12-06 12:23] LABS: HEMATOCRIT 19.2 % (37.0-47.0); HEMOGLOBIN 5.4 g/dL (12.5-16.0); MEAN CORPUSCULAR HEMOGLOBIN 24 pg (27-31); MEAN CORPUSCULAR HGB CONC 28 g/dL (33-37); RED BLOOD COUNT 2.23 M/mm3 (4.10-5.30)
== END ==
LOC: LAB 11:51
PROVIDERS: Nurse Practitioner Family
DX: C91.10 Chronic lymphocytic leukemia of B-cell type not having achieved remission (principal); C85.80 Other specified types of non-Hodgkin lymphoma, unspecified site; M81.0 Age-related osteoporosis without current pathological fracture

== ENCOUNTER 2017-12-08 08:48 | Emergency (ER) | payer MEDICARE, OTHER ==
[~2017-12-08] VITALS: Wt 61.6 kg
[~2017-12-08 08:48] MED LIST changes: +DONEPEZIL HCL10 MG PO; +IMBRUVICA280 MG PO; +MYRBETRIQ25 MG PO; +ULTRAM50 M1 PO
[2017-12-08 09:35] LABS: BASO # 0.1 (0.02-0.10); EOS % 0.3 % (1.0-5.0); LYMPH# 1.8 (1.50-4.00); MEAN CELL VOLUME 89 fl (78-100); MEAN CORPUSCULAR HEMOGLOBIN 27 pg (27-31); MEAN CORPUSCULAR HGB CONC 30 g/dL (33-37); MONO # 1.4 (0.20-0.80); PLATELET COUNT 266 K/mm3 (130-400); RED BLOOD COUNT 2.68 M/mm3 (4.10-5.30); RED CELL DISTRIBUTION WIDTH 16.7 % (11.5-14.5); WHITE BLOOD COUNT 14.5 K/mm3 (4.8-10.8)
[2017-12-08 09:36] LABS: HEMATOCRIT 23.8 % (37.0-47.0); HEMOGLOBIN 7.2 g/dL (12.5-16.0); NEU # 10.9 (1.40-6.50)
[2017-12-08 09:54] LABS: ALBUMIN 2.7 g/dL (3.5-5.0); BUN/CREATININE RATIO 53.7 (6.0-26.0); CALCIUM 9.1 mg/dL (8.4-10.2); POTASSIUM 4.6 mmol/L (3.6-5.0); TOTAL BILIRUBIN 0.4 mg/dL (0.2-1.3); TOTAL PROTEIN 5.1 g/dL (6.3-8.2)
[2017-12-08 12:07] VITALS: BP 124/54
== END 2017-12-08 11:52 | disposition short-term general hospital (02) ==
LOC: ED 08:48
PROVIDERS: Physician Assistant
DX: D50.0 Iron deficiency anemia secondary to blood loss (chronic) (principal); E86.0 Dehydration; C91.10 Chronic lymphocytic leukemia of B-cell type not having achieved remission; Z86.718 Personal history of other venous thrombosis and embolism; Z79.01 Long term (current) use of anticoagulants
CPT/HCPCS: J7120

== ENCOUNTER → 2017-12-19 | Outpatient (CLI) | payer MEDICARE, OTHER ==
[2017-12-08 12:07] VITALS: BP 124/54
[2017-12-19 12:14] LABS: HEMATOCRIT 32.1 % (37.0-47.0); HEMOGLOBIN 9.6 g/dL (12.5-16.0); MEAN CELL VOLUME 95 fl (78-100); MEAN CORPUSCULAR HEMOGLOBIN 29 pg (27-31); MEAN CORPUSCULAR HGB CONC 30 g/dL (33-37); MEAN PLATELET VOLUME 10.7 fl (7.4-10.4); PLATELET COUNT 91 K/mm3 (130-400); RED BLOOD COUNT 3.37 M/mm3 (4.10-5.30); RED CELL DISTRIBUTION WIDTH 16.7 % (11.5-14.5); WHITE BLOOD COUNT 10.3 K/mm3 (4.8-10.8)
[2017-12-19 13:17] LABS: LYMPHOCYTE 12 % (20-51); MONOCYTE 12 % (3-10); NEUTROPHILS 75 % (42-75)
== END ==
LOC: LAB 12:00
PROVIDERS: Internal Medicine Hematology & Oncology
DX: C85.90 Non-Hodgkin lymphoma, unspecified, unspecified site (principal); C91.10 Chronic lymphocytic leukemia of B-cell type not having achieved remission; M81.0 Age-related osteoporosis without current pathological fracture

== ENCOUNTER → 2017-12-25 | Outpatient (CLI) | payer MEDICARE, OTHER ==
[2017-12-08 12:07] VITALS: BP 124/54
[2017-12-25 10:51] LABS: EOS # 0.1 (0.04-0.40); EOS % 1.8 % (1.0-5.0); HEMATOCRIT 30.9 % (37.0-47.0); HEMOGLOBIN 9.2 g/dL (12.5-16.0); LYMPH# 1.2 (1.50-4.00); MEAN CELL VOLUME 94 fl (78-100); MEAN CORPUSCULAR HEMOGLOBIN 28 pg (27-31); MEAN CORPUSCULAR HGB CONC 30 g/dL (33-37); MEAN PLATELET VOLUME 10.2 fl (7.4-10.4); MONO # 0.7 (0.20-0.80); NEU # 5.1 (1.40-6.50); PLATELET COUNT 290 K/mm3 (130-400); RED CELL DISTRIBUTION WIDTH 16.4 % (11.5-14.5); WHITE BLOOD COUNT 7.2 K/mm3 (4.8-10.8)
== END ==
LOC: LAB 10:43
PROVIDERS: Nurse Practitioner Family
DX: Z86.718 Personal history of other venous thrombosis and embolism (principal)

== ENCOUNTER → 2018-01-04 | Outpatient (CLI) | payer MEDICARE, OTHER ==
[2017-12-08 12:07] VITALS: BP 124/54
[2018-01-04 11:13] LABS: HEMOGLOBIN 9.1 g/dL (12.5-16.0); MEAN CELL VOLUME 93 fl (78-100); MEAN CORPUSCULAR HEMOGLOBIN 27 pg (27-31); MEAN PLATELET VOLUME 9.9 fl (7.4-10.4); PLATELET COUNT 299 K/mm3 (130-400); RED BLOOD COUNT 3.35 M/mm3 (4.10-5.30); RED CELL DISTRIBUTION WIDTH 16.8 % (11.5-14.5); WHITE BLOOD COUNT 8.9 K/mm3 (4.8-10.8)
[2018-01-04 11:23] LABS: MEAN CORPUSCULAR HGB CONC 29 g/dL (33-37)
[2018-01-04 11:29] LABS: HYPOCHROMIA 1+; LYMPHOCYTE 19 % (20-51); MONOCYTE 8 % (3-10); NEUTROPHILS 70 % (42-75)
== END ==
LOC: LAB 10:53
PROVIDERS: Internal Medicine Hematology & Oncology
DX: C91.10 Chronic lymphocytic leukemia of B-cell type not having achieved remission (principal); C85.80 Other specified types of non-Hodgkin lymphoma, unspecified site; M81.0 Age-related osteoporosis without current pathological fracture

== ENCOUNTER → 2018-01-25 | Outpatient (CLI) | payer MEDICARE, OTHER ==
[2018-01-25 16:14] LABS: BASO # 0.1 (0.02-0.10); EOS # 0.1 (0.04-0.40); EOS % 1.2 % (1.0-5.0); HEMATOCRIT 29.8 % (37.0-47.0); HEMOGLOBIN 8.8 g/dL (12.5-16.0); LYMPH# 1.3 (1.50-4.00); MEAN CELL VOLUME 90 fl (78-100); MEAN CORPUSCULAR HEMOGLOBIN 27 pg (27-31); MEAN CORPUSCULAR HGB CONC 30 g/dL (33-37); MEAN PLATELET VOLUME 10.5 fl (7.4-10.4); MONO # 0.8 (0.20-0.80); NEU # 5.4 (1.40-6.50); PLATELET COUNT 274 K/mm3 (130-400); RED BLOOD COUNT 3.32 M/mm3 (4.10-5.30); RED CELL DISTRIBUTION WIDTH 16.9 % (11.5-14.5); WHITE BLOOD COUNT 7.7 K/mm3 (4.8-10.8)
== END ==
LOC: LAB 15:56
PROVIDERS: Internal Medicine Hematology & Oncology
DX: C91.10 Chronic lymphocytic leukemia of B-cell type not having achieved remission (principal); C85.80 Other specified types of non-Hodgkin lymphoma, unspecified site; M81.0 Age-related osteoporosis without current pathological fracture

== ENCOUNTER → 2018-02-07 | Outpatient (CLI) | payer MEDICARE, OTHER ==
[2018-02-07 15:49] LABS: HEMATOCRIT 28.7 % (37.0-47.0); HEMOGLOBIN 8.3 g/dL (12.5-16.0); MEAN CELL VOLUME 90 fl (78-100); MEAN CORPUSCULAR HEMOGLOBIN 26 pg (27-31); MEAN PLATELET VOLUME 10.5 fl (7.4-10.4); PLATELET COUNT 243 K/mm3 (130-400); RED BLOOD COUNT 3.19 M/mm3 (4.10-5.30); RED CELL DISTRIBUTION WIDTH 16.9 % (11.5-14.5); WHITE BLOOD COUNT 7.7 K/mm3 (4.8-10.8)
[2018-02-07 16:07] LABS: ALBUMIN 2.9 g/dL (3.5-5.0); BUN/CREATININE RATIO 22.9 (6.0-26.0); CALCIUM 8.2 mg/dL (8.4-10.2); POTASSIUM 4.7 mmol/L (3.6-5.0); TOTAL BILIRUBIN 0.3 mg/dL (0.2-1.3); TOTAL PROTEIN 5.7 g/dL (6.3-8.2)
[2018-02-07 17:18] LABS: MEAN CORPUSCULAR HGB CONC 29 g/dL (33-37)
[2018-02-07 17:19] LABS: LYMPHOCYTE 10 % (20-51); MONOCYTE 9 % (3-10); NEUTROPHILS 78 % (42-75)
[2018-02-07 17:22] LABS: HYPOCHROMIA 3+
== END ==
LOC: LAB 15:19
PROVIDERS: Internal Medicine Hematology & Oncology
DX: C91.10 Chronic lymphocytic leukemia of B-cell type not having achieved remission (principal); C85.80 Other specified types of non-Hodgkin lymphoma, unspecified site; M81.0 Age-related osteoporosis without current pathological fracture

== ENCOUNTER → 2018-02-22 | Outpatient (CLI) | payer MEDICARE, OTHER ==
[2018-02-22 20:05] LABS: HEMATOCRIT 30.6 % (37.0-47.0); HEMOGLOBIN 9.1 g/dL (12.5-16.0); MEAN CELL VOLUME 87 fl (78-100); MEAN CORPUSCULAR HEMOGLOBIN 26 pg (27-31); MEAN CORPUSCULAR HGB CONC 30 g/dL (33-37); MEAN PLATELET VOLUME 11.1 fl (7.4-10.4); PLATELET COUNT 324 K/mm3 (130-400); RED BLOOD COUNT 3.51 M/mm3 (4.10-5.30); RED CELL DISTRIBUTION WIDTH 16.8 % (11.5-14.5); WHITE BLOOD COUNT 6.2 K/mm3 (4.8-10.8)
[2018-02-22 22:08] LABS: BAND 3 % (0-10); LYMPHOCYTE 15 % (20-51); MONOCYTE 16 % (3-10); MYELOCYTE 1 % (0-0); NEUTROPHILS 62 % (42-75); POLYCHROMASIA 1+
== END ==
LOC: LAB 17:58
PROVIDERS: Internal Medicine Hematology & Oncology
DX: C91.10 Chronic lymphocytic leukemia of B-cell type not having achieved remission (principal); M81.0 Age-related osteoporosis without current pathological fracture; C85.80 Other specified types of non-Hodgkin lymphoma, unspecified site

== ENCOUNTER → 2018-02-23 | Outpatient (CLI) | payer MEDICARE, OTHER ==
[2018-02-23 14:17] LABS: HEMATOCRIT 33.1 % (37.0-47.0); HEMOGLOBIN 9.7 g/dL (12.5-16.0); MEAN CELL VOLUME 87 fl (78-100); MEAN CORPUSCULAR HEMOGLOBIN 26 pg (27-31); MEAN PLATELET VOLUME 10.7 fl (7.4-10.4); PLATELET COUNT 337 K/mm3 (130-400); RED BLOOD COUNT 3.81 M/mm3 (4.10-5.30); RED CELL DISTRIBUTION WIDTH 16.9 % (11.5-14.5); WHITE BLOOD COUNT 7.3 K/mm3 (4.8-10.8)
[2018-02-23 14:18] LABS: ALBUMIN 3.3 g/dL (3.5-5.0); BUN/CREATININE RATIO 18.9 (6.0-26.0); CALCIUM 8.7 mg/dL (8.4-10.2); POTASSIUM 4.7 mmol/L (3.6-5.0); TOTAL BILIRUBIN 0.5 mg/dL (0.2-1.3); TOTAL PROTEIN 6.3 g/dL (6.3-8.2)
[2018-02-23 14:48] LABS: URINE APPEARANCE CLOUDY; URINE BILIRUBIN NEGATIVE (NEGATIVE); URINE BLOOD 50 ery/uL (NEGATIVE); URINE COLOR LIGHT YELLOW; URINE GLUCOSE NEGATIVE (NEGATIVE); URINE KETONE NEGATIVE (NEGATIVE); URINE LEUKOCYTE ESTERASE 2+ (NEGATIVE); URINE NITRATE NEGATIVE (NEGATIVE); URINE PROTEIN(semi-quant) 1+ mg/dL (NEGATIVE); URINE UROBILINOGEN NORMAL (NORMAL); URINE WBC >50 /hpf (0-3)
[2018-02-23 15:28] LABS: MEAN CORPUSCULAR HGB CONC 29 g/dL (33-37)
[2018-02-23 15:32] LABS: BAND 1 % (0-10); LYMPHOCYTE 14 % (20-51); NEUTROPHILS 74 % (42-75)
[2018-02-23 15:33] LABS: MONOCYTE 10 % (3-10)
[2018-02-23 15:45] LABS: NUCLEATED RED BLOOD CELL 2 (0-6)
[2018-02-23 15:46] LABS: HYPOCHROMIA 1+
== END ==
LOC: RAD 13:52
PROVIDERS: Physician Assistant
DX: R53.83 Other fatigue (principal); R29.6 Repeated falls; R06.00 Dyspnea, unspecified; N30.00 Acute cystitis without hematuria

== ENCOUNTER 2018-02-28 10:25 | Emergency (ER) | payer MEDICARE, OTHER ==
[2018-02-28] MEDS ORDERED: CIPRO 500MG TA500 MG PO (11:03)
[2018-02-28] MEDS ORDERED: FOLIC ACID1 MG PO (11:04)
[2018-02-28 12:56] LABS: ALBUMIN 2.9 g/dL (3.5-5.0); BUN/CREATININE RATIO 23.7 (6.0-26.0); CALCIUM 8.6 mg/dL (8.4-10.2); POTASSIUM 5.1 mmol/L (3.6-5.0); TOTAL BILIRUBIN 0.7 mg/dL (0.2-1.3); TOTAL PROTEIN 5.9 g/dL (6.3-8.2)
[2018-02-28 13:09] LABS: HEMATOCRIT 29.2 % (37.0-47.0); HEMOGLOBIN 8.9 g/dL (12.5-16.0); MEAN CELL VOLUME 85 fl (78-100); MEAN CORPUSCULAR HEMOGLOBIN 26 pg (27-31); MEAN CORPUSCULAR HGB CONC 31 g/dL (33-37); MEAN PLATELET VOLUME 10.4 fl (7.4-10.4); PLATELET COUNT 280 K/mm3 (130-400); RED BLOOD COUNT 3.43 M/mm3 (4.10-5.30); RED CELL DISTRIBUTION WIDTH 17.1 % (11.5-14.5); WHITE BLOOD COUNT 11.4 K/mm3 (4.8-10.8)
[2018-02-28 13:16] LABS: BAND 5 % (0-10); LYMPHOCYTE 6 % (20-51); METAMYELOCYTE 3 % (0-0); MONOCYTE 8 % (3-10); MYELOCYTE 2 % (0-0)
[2018-02-28 13:17] LABS: NEUTROPHILS 73 % (42-75)
[2018-02-28 13:24] LABS: PH-URINE 5.5 (5.0 - 8.0); URINE APPEARANCE CLOUDY; URINE BILIRUBIN NEGATIVE (NEGATIVE); URINE BLOOD 50 ery/uL (NEGATIVE); URINE COLOR YELLOW; URINE GLUCOSE NEGATIVE (NEGATIVE); URINE KETONE NEGATIVE (NEGATIVE); URINE LEUKOCYTE ESTERASE 2+ (NEGATIVE); URINE NITRATE NEGATIVE (NEGATIVE); URINE PROTEIN(semi-quant) 2+ mg/dL (NEGATIVE); URINE UROBILINOGEN NORMAL (NORMAL); URINE WBC >50 /hpf (0-3)
[2018-02-28 15:31] VITALS: BP 128/46
== END 2018-02-28 15:04 | disposition other institution (70) ==
LOC: ED 10:25
PROVIDERS: Nurse Practitioner Primary Care
DX: N10 Acute pyelonephritis (principal); S32.10XA Unspecified fracture of sacrum, initial encounter for closed fracture; M79.662 Pain in left lower leg; M79.661 Pain in right lower leg; M79.652 Pain in left thigh; M79.651 Pain in right thigh; F03.90 Unspecified dementia, unspecified severity, without behavioral disturbance, psychotic disturbance, mood disturbance, and anxiety; I12.9 Hypertensive chronic kidney disease with stage 1 through stage 4 chronic kidney disease, or unspecified chronic kidney disease; N18.9 Chronic kidney disease, unspecified; Z91.81 History of falling; Z88.0 Allergy status to penicillin; Z88.2 Allergy status to sulfonamides; Z79.899 Other long term (current) drug therapy; C95.10 Chronic leukemia of unspecified cell type not having achieved remission
CPT/HCPCS: J3010; J7030

== ENCOUNTER 2018-02-28 14:37 | Inpatient (IN) | payer MEDICARE, OTHER ==
[~2018-02-28] VITALS: Ht 165.1 cm; Wt 58.5 kg
[~2018-02-28 14:37] MED LIST changes: +CIPRO 500MG TA500 MG PO; +FOLIC ACID1 MG PO
[2018-02-28 14:52] VITALS: BP 128/46
[2018-02-28 15:00] VITALS: BP 128/46
[2018-02-28 18:28] VITALS: BP 125/57
[2018-02-28 23:00] VITALS: BP 130/68
[2018-03-01 03:00] VITALS: BP 126/65
[2018-03-01 06:10] LABS: HEMATOCRIT 25.9 % (37.0-47.0); MEAN CELL VOLUME 87 fl (78-100); MEAN CORPUSCULAR HEMOGLOBIN 26 pg (27-31); MEAN CORPUSCULAR HGB CONC 30 g/dL (33-37); MEAN PLATELET VOLUME 10.6 fl (7.4-10.4); PLATELET COUNT 248 K/mm3 (130-400); RED BLOOD COUNT 2.98 M/mm3 (4.10-5.30); RED CELL DISTRIBUTION WIDTH 17.5 % (11.5-14.5); WHITE BLOOD COUNT 9.4 K/mm3 (4.8-10.8)
[2018-03-01 06:15] LABS: ALBUMIN 2.3 g/dL (3.5-5.0); BUN/CREATININE RATIO 22.5 (6.0-26.0); CALCIUM 7.6 mg/dL (8.4-10.2); POTASSIUM 4.5 mmol/L (3.6-5.0); TOTAL BILIRUBIN 0.2 mg/dL (0.2-1.3); TOTAL PROTEIN 4.9 g/dL (6.3-8.2)
[2018-03-01 06:19] LABS: HEMOGLOBIN 7.7 g/dL (12.5-16.0)
[2018-03-01 06:21] VITALS: BP 123/69
[2018-03-01 06:32] LABS: ACANTHROCYTES 1+; BAND 4 % (0-10); LYMPHOCYTE 8 % (20-51); METAMYELOCYTE 4 % (0-0); MONOCYTE 6 % (3-10); MYELOCYTE 5 % (0-0); NEUTROPHILS 73 % (42-75); OVALOCYTES 1+
[2018-03-01 11:09] VITALS: BP 115/63
[2018-03-01 15:07] VITALS: BP 124/62
[2018-03-01 18:21] VITALS: BP 113/61
[2018-03-01 22:44] VITALS: BP 116/59
[2018-03-02 03:10] VITALS: BP 145/67
[2018-03-02 06:13] LABS: HEMATOCRIT 25.8 % (37.0-47.0); MEAN CELL VOLUME 87 fl (78-100); MEAN CORPUSCULAR HEMOGLOBIN 26 pg (27-31); MEAN CORPUSCULAR HGB CONC 30 g/dL (33-37); MEAN PLATELET VOLUME 9.9 fl (7.4-10.4); PLATELET COUNT 238 K/mm3 (130-400); RED BLOOD COUNT 2.97 M/mm3 (4.10-5.30); RED CELL DISTRIBUTION WIDTH 17.3 % (11.5-14.5); WHITE BLOOD COUNT 8.8 K/mm3 (4.8-10.8)
[2018-03-02 06:14] LABS: HEMOGLOBIN 7.6 g/dL (12.5-16.0)
[2018-03-02 06:21] LABS: BAND 5 % (0-10); HYPOCHROMIA 1+; LYMPHOCYTE 11 % (20-51); METAMYELOCYTE 3 % (0-0); MONOCYTE 4 % (3-10); MYELOCYTE 4 % (0-0); NEUTROPHILS 71 % (42-75); OVALOCYTES 1+
[2018-03-02 06:28] LABS: BUN/CREATININE RATIO 24.5 (6.0-26.0); CALCIUM 7.8 mg/dL (8.4-10.2); POTASSIUM 4.2 mmol/L (3.6-5.0)
[2018-03-02 06:31] VITALS: BP 129/63
[2018-03-02 11:36] VITALS: BP 102/61
[2018-03-02 14:57] VITALS: BP 101/60
[2018-03-02 18:20] VITALS: BP 124/64
[2018-03-02 23:08] VITALS: BP 120/61
[2018-03-03 03:08] VITALS: BP 131/62
[2018-03-03 06:07] VITALS: BP 132/57
[2018-03-03 07:05] LABS: ALBUMIN 2.7 g/dL (3.5-5.0); BUN/CREATININE RATIO 23.9 (6.0-26.0); CALCIUM 8.4 mg/dL (8.4-10.2); POTASSIUM 4.4 mmol/L (3.6-5.0); TOTAL BILIRUBIN 0.1 mg/dL (0.2-1.3); TOTAL PROTEIN 5.6 g/dL (6.3-8.2)
[2018-03-03 07:22] LABS: HEMATOCRIT 30.8 % (37.0-47.0); HEMOGLOBIN 9.2 g/dL (12.5-16.0); MEAN CELL VOLUME 87 fl (78-100); MEAN CORPUSCULAR HEMOGLOBIN 26 pg (27-31); MEAN CORPUSCULAR HGB CONC 30 g/dL (33-37); MEAN PLATELET VOLUME 11.1 fl (7.4-10.4); PLATELET COUNT 266 K/mm3 (130-400); RED BLOOD COUNT 3.53 M/mm3 (4.10-5.30); RED CELL DISTRIBUTION WIDTH 17.6 % (11.5-14.5); WHITE BLOOD COUNT 10.6 K/mm3 (4.8-10.8)
[2018-03-03 07:39] LABS: BAND 2 % (0-10); LYMPHOCYTE 10 % (20-51); METAMYELOCYTE 9 % (0-0); MONOCYTE 9 % (3-10); MYELOCYTE 2 % (0-0); NEUTROPHILS 65 % (42-75)
[2018-03-03 07:40] LABS: OVALOCYTES 1+
[2018-03-03 11:07] VITALS: BP 117/61
== END 2018-03-03 14:04 | disposition swing bed (61) | DRG 543 ==
LOC: MED/SURG 14:37
PROVIDERS: Nurse Practitioner Family; ADMIT Nurse Practitioner Primary Care
DX: M84.454A Pathological fracture, pelvis, initial encounter for fracture (principal); N10 Acute pyelonephritis; C91.10 Chronic lymphocytic leukemia of B-cell type not having achieved remission; N18.9 Chronic kidney disease, unspecified; F03.90 Unspecified dementia, unspecified severity, without behavioral disturbance, psychotic disturbance, mood disturbance, and anxiety; I12.9 Hypertensive chronic kidney disease with stage 1 through stage 4 chronic kidney disease, or unspecified chronic kidney disease; M48.061 Spinal stenosis, lumbar region without neurogenic claudication; D63.1 Anemia in chronic kidney disease
CPT/HCPCS: J0696; J1650; J2270; J7030

== ENCOUNTER → 2018-04-18 | Outpatient (CLI) | payer MEDICARE, OTHER ==
[2018-03-22 08:16] VITALS: BP 143/72
[~2018-04-18] MED LIST changes: +DESENEX2% TP; +DOCUSATE SOD100 MG PO; +DURAGESIC1 EAC1 TD; +PEG 335017 GM/Dose PO; +PHENAZOPYRIDINE PO; +ZITHROMAX 250M250 MG PO
[2018-04-18 05:36] LABS: HEMATOCRIT 28.9 % (37.0-47.0); HEMOGLOBIN 8.5 g/dL (12.5-16.0); MEAN CELL VOLUME 90 fl (78-100); MEAN CORPUSCULAR HEMOGLOBIN 26 pg (27-31); PLATELET COUNT 215 K/mm3 (130-400); RED BLOOD COUNT 3.22 M/mm3 (4.10-5.30); WHITE BLOOD COUNT 5.1 K/mm3 (4.8-10.8)
[2018-04-18 05:45] LABS: MEAN CORPUSCULAR HGB CONC 29 g/dL (33-37)
[2018-04-18 05:50] LABS: ALBUMIN 2.2 g/dL (3.5-5.0); CALCIUM 8.3 mg/dL (8.4-10.2); POTASSIUM 4.4 mmol/L (3.6-5.0); TOTAL BILIRUBIN 0.5 mg/dL (0.2-1.3); TOTAL PROTEIN 4.3 g/dL (6.3-8.2)
[2018-04-18 06:15] LABS: LYMPHOCYTE 21 % (20-51); MONOCYTE 18 % (3-10); NEUTROPHILS 58 % (42-75)
[2018-04-18 06:16] LABS: OVALOCYTES 1+
== END ==
LOC: LAB 05:15
PROVIDERS: Internal Medicine Hematology & Oncology
DX: C91.10 Chronic lymphocytic leukemia of B-cell type not having achieved remission (principal); C85.80 Other specified types of non-Hodgkin lymphoma, unspecified site; M81.0 Age-related osteoporosis without current pathological fracture

== ENCOUNTER → 2018-05-01 | Outpatient (CLI) | payer MEDICARE, OTHER ==
[2018-03-22 08:16] VITALS: BP 143/72
[~2018-05-01] MED LIST changes: +NOVAPLUS L60 MG/0.6 SQ
[2018-05-01 20:41] LABS: HEMATOCRIT 32.5 % (37.0-47.0); HEMOGLOBIN 9.7 g/dL (12.5-16.0); MEAN CELL VOLUME 90 fl (78-100); MEAN CORPUSCULAR HEMOGLOBIN 27 pg (27-31); MEAN CORPUSCULAR HGB CONC 30 g/dL (33-37); MEAN PLATELET VOLUME 10.9 fl (7.4-10.4); PLATELET COUNT 250 K/mm3 (130-400); RED CELL DISTRIBUTION WIDTH 19.4 % (11.5-14.5); WHITE BLOOD COUNT 7.2 K/mm3 (4.8-10.8)
[2018-05-01 20:42] LABS: LYMPHOCYTE 19 % (20-51); MONOCYTE 14 % (3-10); NEUTROPHILS 63 % (42-75)
[2018-05-01 20:48] LABS: ALBUMIN 2.8 g/dL (3.5-5.0); CALCIUM 8.1 mg/dL (8.4-10.2); POTASSIUM 3.9 mmol/L (3.6-5.0); TOTAL BILIRUBIN 0.5 mg/dL (0.2-1.3); TOTAL PROTEIN 5.3 g/dL (6.3-8.2)
== END ==
LOC: LAB 12:25
PROVIDERS: Internal Medicine Hematology & Oncology
DX: C91.10 Chronic lymphocytic leukemia of B-cell type not having achieved remission (principal); C85.80 Other specified types of non-Hodgkin lymphoma, unspecified site; M81.0 Age-related osteoporosis without current pathological fracture

== ENCOUNTER 2018-05-05 18:07 | Emergency (ER) | payer MEDICARE, OTHER ==
[~2018-05-05] VITALS: Wt 64.1 kg
[~2018-05-05 18:07] MED LIST changes: -NOVAPLUS L60 MG/0.6 SQ
[2018-05-05] MEDS ORDERED: RISPERDAL 0.20.25 MG PO (19:10)
[2018-05-05 19:42] VITALS: BP 161/58
[2018-05-05] MEDS ORDERED: NOVAPLUS L60 MG/0.6 SQ (20:04)
== END 2018-05-05 20:18 | disposition home or self-care (01) ==
LOC: ED 18:07
DX: R79.89 Other specified abnormal findings of blood chemistry (principal); R60.0 Localized edema; F03.90 Unspecified dementia, unspecified severity, without behavioral disturbance, psychotic disturbance, mood disturbance, and anxiety; Z86.718 Personal history of other venous thrombosis and embolism; Z85.6 Personal history of leukemia; Z79.899 Other long term (current) drug therapy; Z79.891 Long term (current) use of opiate analgesic; Z79.01 Long term (current) use of anticoagulants
CPT/HCPCS: J1650

== ENCOUNTER → 2018-05-05 | Outpatient (CLI) | payer MEDICARE, OTHER ==
[2018-03-22 08:16] VITALS: BP 143/72
[2018-05-05 15:10] LABS: HEMOGLOBIN 9.7 g/dL (12.5-16.0); MEAN CELL VOLUME 91 fl (78-100); MEAN CORPUSCULAR HEMOGLOBIN 27 pg (27-31); MEAN PLATELET VOLUME 10.3 fl (7.4-10.4); PLATELET COUNT 237 K/mm3 (130-400); RED BLOOD COUNT 3.62 M/mm3 (4.10-5.30); WHITE BLOOD COUNT 7.9 K/mm3 (4.8-10.8)
[2018-05-05 15:42] LABS: ALBUMIN 2.8 g/dL (3.5-5.0); CALCIUM 8.7 mg/dL (8.4-10.2); POTASSIUM 5.4 mmol/L (3.6-5.0); TOTAL BILIRUBIN 0.4 mg/dL (0.2-1.3); TOTAL PROTEIN 5.4 g/dL (6.3-8.2)
[2018-05-05 15:53] LABS: MEAN CORPUSCULAR HGB CONC 29 g/dL (33-37); RED CELL DISTRIBUTION WIDTH 19.9 % (11.5-14.5)
[2018-05-05 15:55] LABS: D-DIMER 1.82 mg/L FEU (0.15-0.50)
[2018-05-05 16:18] LABS: URINE COLOR LT YELLOW
[2018-05-05 16:19] LABS: URINE APPEARANCE HAZY; URINE BILIRUBIN NEGATIVE (NEGATIVE); URINE BLOOD TRACE (NEGATIVE); URINE GLUCOSE NEGATIVE (NEGATIVE); URINE KETONE NEGATIVE (NEGATIVE); URINE NITRATE NEGATIVE (NEGATIVE); URINE PROTEIN(semi-quant) TRACE mg/dL (NEGATIVE); URINE UROBILINOGEN NORMAL (NORMAL)
[2018-05-05 16:20] LABS: URINE LEUKOCYTE ESTERASE 1+ (NEGATIVE); URINE MUCUS PRESENT (NOT PRESENT)
[2018-05-05 16:21] LABS: HYPOCHROMIA 2+; LYMPHOCYTE 25 % (20-51); MONOCYTE 10 % (3-10); NEUTROPHILS 64 % (42-75)
== END ==
LOC: LAB 14:43
PROVIDERS: Family Medicine
DX: C91.10 Chronic lymphocytic leukemia of B-cell type not having achieved remission (principal); R60.0 Localized edema; Z86.718 Personal history of other venous thrombosis and embolism

== ENCOUNTER → 2018-05-08 | Outpatient (CLI) | payer MEDICARE, OTHER ==
[2018-05-05 19:42] VITALS: BP 161/58
[~2018-05-08] MED LIST changes: +NOVAPLUS L60 MG/0.6 SQ
== END ==
LOC: RAD 10:12
DX: R60.0 Localized edema (principal); R79.1 Abnormal coagulation profile; Z86.718 Personal history of other venous thrombosis and embolism

== ENCOUNTER → 2018-05-18 | Outpatient (CLI) | payer MEDICARE, OTHER ==
[2018-05-05 19:42] VITALS: BP 161/58
[2018-05-18 15:47] LABS: HEMATOCRIT 30.4 % (37.0-47.0); MEAN CELL VOLUME 93 fl (78-100); MEAN CORPUSCULAR HEMOGLOBIN 28 pg (27-31); MEAN CORPUSCULAR HGB CONC 30 g/dL (33-37); MEAN PLATELET VOLUME 11.4 fl (7.4-10.4); PLATELET COUNT 228 K/mm3 (130-400); RED BLOOD COUNT 3.26 M/mm3 (4.10-5.30)
[2018-05-18 16:41] LABS: RED CELL DISTRIBUTION WIDTH 20.4 % (11.5-14.5)
[2018-05-18 18:09] LABS: BAND 1 % (0-10); HYPOCHROMIA 1+; LYMPHOCYTE 23 % (20-51); MONOCYTE 6 % (3-10); NEUTROPHILS 69 % (42-75); POLYCHROMASIA 1+
== END ==
LOC: LAB 14:51
PROVIDERS: Internal Medicine Hematology & Oncology
DX: C91.10 Chronic lymphocytic leukemia of B-cell type not having achieved remission (principal); C85.80 Other specified types of non-Hodgkin lymphoma, unspecified site; M81.0 Age-related osteoporosis without current pathological fracture

== ENCOUNTER → 2018-06-15 | Outpatient (CLI) | payer MEDICARE, OTHER ==
[2018-06-15 17:36] LABS: HEMATOCRIT 29.7 % (37.0-47.0); HEMOGLOBIN 9.1 g/dL (12.5-16.0); MEAN CELL VOLUME 91 fl (78-100); MEAN CORPUSCULAR HEMOGLOBIN 28 pg (27-31); MEAN CORPUSCULAR HGB CONC 31 g/dL (33-37); MEAN PLATELET VOLUME 10.6 fl (7.4-10.4); PLATELET COUNT 244 K/mm3 (130-400); RED BLOOD COUNT 3.25 M/mm3 (4.10-5.30); RED CELL DISTRIBUTION WIDTH 17.6 % (11.5-14.5); WHITE BLOOD COUNT 4.1 K/mm3 (4.8-10.8)
[2018-06-15 17:54] LABS: ALBUMIN 3.3 g/dL (3.5-5.0); CALCIUM 8.6 mg/dL (8.4-10.2); TOTAL BILIRUBIN 0.3 mg/dL (0.2-1.3); TOTAL PROTEIN 5.8 g/dL (6.3-8.2)
[2018-06-15 18:30] LABS: HYPOCHROMIA 1+; LYMPHOCYTE 30 % (20-51); MONOCYTE 20 % (3-10); NEUTROPHILS 48 % (42-75)
== END ==
LOC: LAB 17:03
PROVIDERS: Internal Medicine Hematology & Oncology
DX: C91.10 Chronic lymphocytic leukemia of B-cell type not having achieved remission (principal); C85.80 Other specified types of non-Hodgkin lymphoma, unspecified site; M81.0 Age-related osteoporosis without current pathological fracture

== ENCOUNTER → 2018-06-18 | Outpatient (CLI) | payer MEDICARE, OTHER ==
[2018-06-19 12:26] LABS: URINE APPEARANCE CLOUDY; URINE BILIRUBIN NEGATIVE (NEGATIVE); URINE COLOR YELLOW; URINE GLUCOSE NEGATIVE (NEGATIVE); URINE KETONE NEGATIVE (NEGATIVE); URINE PROTEIN(semi-quant) 2+ mg/dL (NEGATIVE); URINE UROBILINOGEN NORMAL (NORMAL)
[2018-06-19 12:27] LABS: URINE BLOOD 250 ery/uL (NEGATIVE); URINE LEUKOCYTE ESTERASE 2+ (NEGATIVE); URINE NITRATE POSITIVE (NEGATIVE); URINE WBC >50 /hpf (0-3)
== END ==
LOC: LAB 19:15
PROVIDERS: Family Medicine
DX: N39.0 Urinary tract infection, site not specified (principal); R30.0 Dysuria

== ENCOUNTER 2018-07-02 10:39 | Emergency (ER) | payer MEDICARE, OTHER ==
[~2018-07-02] VITALS: Ht 167.6 cm; Wt 63.6 kg
[2018-07-02 10:55] VITALS: BP 140/69
[2018-07-02 11:44] LABS: HEMATOCRIT 27.6 % (37.0-47.0); HEMOGLOBIN 8.5 g/dL (12.5-16.0); MEAN CELL VOLUME 91 fl (78-100); MEAN CORPUSCULAR HEMOGLOBIN 28 pg (27-31); MEAN CORPUSCULAR HGB CONC 31 g/dL (33-37); MEAN PLATELET VOLUME 10.5 fl (7.4-10.4); PLATELET COUNT 288 K/mm3 (130-400); RED BLOOD COUNT 3.04 M/mm3 (4.10-5.30); RED CELL DISTRIBUTION WIDTH 16.8 % (11.5-14.5); WHITE BLOOD COUNT 10.7 K/mm3 (4.8-10.8)
[2018-07-02] MEDS ORDERED: DURAGESIC50 MCG/PAT TD (11:52)
[2018-07-02] MEDS ORDERED: FEOSOL325 MG PO (11:53)
[2018-07-02 12:12] LABS: URINE APPEARANCE CLOUDY; URINE BILIRUBIN NEGATIVE (NEGATIVE); URINE BLOOD 50 ery/uL (NEGATIVE); URINE COLOR ORANG; URINE GLUCOSE NEGATIVE (NEGATIVE); URINE KETONE NEGATIVE (NEGATIVE); URINE LEUKOCYTE ESTERASE 2+ (NEGATIVE); URINE NITRATE NEGATIVE (NEGATIVE); URINE PROTEIN(semi-quant) 2+ mg/dL (NEGATIVE); URINE UROBILINOGEN NORMAL (NORMAL); URINE WBC >50 /hpf (0-3)
[2018-07-02 12:16] LABS: BAND 1 % (0-10); LYMPHOCYTE 7 % (20-51); MONOCYTE 12 % (3-10); NEUTROPHILS 80 % (42-75)
[2018-07-02] MEDS ORDERED: DIFLUCAN200 M1 PO (12:30)
[2018-07-02] MEDS ORDERED: PREMARIN30 GM VG (12:30)
[2018-07-02] MEDS ORDERED: MACROBID 100 M100 MG PO (12:30)
== END 2018-07-02 12:40 | disposition home or self-care (01) ==
LOC: ED 10:39
PROVIDERS: Family Medicine
DX: N30.90 Cystitis, unspecified without hematuria (principal); N95.2 Postmenopausal atrophic vaginitis; B37.3 Candidiasis of vulva and vagina; F03.90 Unspecified dementia, unspecified severity, without behavioral disturbance, psychotic disturbance, mood disturbance, and anxiety; Z85.6 Personal history of leukemia; Z79.899 Other long term (current) drug therapy

== ENCOUNTER → 2018-07-13 | Outpatient (CLI) | payer MEDICARE, OTHER ==
[2018-07-02 10:55] VITALS: BP 140/69
[~2018-07-13] MED LIST changes: +DURAGESIC50 MCG/PAT TD; +FEOSOL325 MG PO; +MACROBID 100 M100 MG PO
[2018-07-13 11:55] LABS: POTASSIUM 4.3 mmol/L (3.6-5.0); TOTAL PROTEIN 5.6 g/dL (6.3-8.2)
[2018-07-13 12:05] LABS: EOS # 0.1 (0.04-0.40); EOS % 1.6 % (1.0-5.0); HEMOGLOBIN 8.6 g/dL (12.5-16.0); MEAN CELL VOLUME 93 fl (78-100); MEAN CORPUSCULAR HEMOGLOBIN 28 pg (27-31); MEAN CORPUSCULAR HGB CONC 30 g/dL (33-37); MEAN PLATELET VOLUME 10.9 fl (7.4-10.4); MONO # 0.9 (0.20-0.80); NEU # 6.4 (1.40-6.50); PLATELET COUNT 266 K/mm3 (130-400); RED BLOOD COUNT 3.13 M/mm3 (4.10-5.30); RED CELL DISTRIBUTION WIDTH 17.1 % (11.5-14.5); WHITE BLOOD COUNT 8.6 K/mm3 (4.8-10.8)
[2018-07-13 13:33] LABS: ALBUMIN 3.1 g/dL (3.5-5.0); CALCIUM 8.5 mg/dL (8.4-10.2); TOTAL BILIRUBIN 0.4 mg/dL (0.2-1.3)
== END ==
LOC: LAB 11:24
PROVIDERS: Internal Medicine Hematology & Oncology
DX: C91.10 Chronic lymphocytic leukemia of B-cell type not having achieved remission (principal); C85.90 Non-Hodgkin lymphoma, unspecified, unspecified site; M81.0 Age-related osteoporosis without current pathological fracture

== ENCOUNTER → 2018-08-18 | Outpatient (CLI) | payer MEDICARE, OTHER ==
[2018-08-18 20:51] LABS: URINE APPEARANCE CLOUDY; URINE BILIRUBIN NEGATIVE (NEGATIVE); URINE BLOOD 50 ery/uL (NEGATIVE); URINE COLOR YELLOW; URINE GLUCOSE NEGATIVE (NEGATIVE); URINE KETONE NEGATIVE (NEGATIVE); URINE NITRATE NEGATIVE (NEGATIVE); URINE PROTEIN(semi-quant) TRACE mg/dL (NEGATIVE); URINE UROBILINOGEN NORMAL (NORMAL)
[2018-08-18 20:52] LABS: URINE LEUKOCYTE ESTERASE 2+ (NEGATIVE); URINE WBC >50 /hpf (0-3)
== END ==
LOC: LAB 19:11
PROVIDERS: Family Medicine
DX: R30.0 Dysuria (principal); R39.15 Urgency of urination

== ENCOUNTER → 2018-08-21 | Outpatient (CLI) | payer MEDICARE, OTHER ==
[2018-08-21 17:37] LABS: ALBUMIN 3.1 g/dL (3.5-5.0); CALCIUM 8.6 mg/dL (8.4-10.2); POTASSIUM 4.3 mmol/L (3.6-5.0); TOTAL BILIRUBIN 0.4 mg/dL (0.2-1.3); TOTAL PROTEIN 5.9 g/dL (6.3-8.2)
[2018-08-21 17:49] LABS: HEMATOCRIT 29.4 % (37.0-47.0); HEMOGLOBIN 8.7 g/dL (12.5-16.0); MEAN CELL VOLUME 93 fl (78-100); MEAN CORPUSCULAR HEMOGLOBIN 27 pg (27-31); MEAN CORPUSCULAR HGB CONC 30 g/dL (33-37); PLATELET COUNT 220 K/mm3 (130-400); RED BLOOD COUNT 3.18 M/mm3 (4.10-5.30); RED CELL DISTRIBUTION WIDTH 16.8 % (11.5-14.5); WHITE BLOOD COUNT 8.5 K/mm3 (4.8-10.8)
[2018-08-21 18:28] LABS: HYPOCHROMIA 2+; LYMPHOCYTE 12 % (20-51); MONOCYTE 10 % (3-10); NEUTROPHILS 76 % (42-75)
[2018-08-21 18:29] LABS: MICROCYTOSIS 1+
== END ==
LOC: LAB 15:55
PROVIDERS: Internal Medicine Hematology & Oncology
DX: C91.10 Chronic lymphocytic leukemia of B-cell type not having achieved remission (principal); L03.90 Cellulitis, unspecified; M79.675 Pain in left toe(s)

== ENCOUNTER → 2018-09-29 | Outpatient (CLI) | payer MEDICARE, OTHER ==
[~2018-09-29] MED LIST changes: +ACETAMINOPHEN500 M5 PO; +ALBUTEROL2.5 MG/3 M IH; +GOOD NEIGH1200 MG/15 PO; +PYRIDIUM100 M1 PO; +ZOFRAN ODT4 MG PO
[2018-09-29 17:32] LABS: CALCIUM 8.6 mg/dL (8.4-10.2); POTASSIUM 4.7 mmol/L (3.6-5.0); TOTAL BILIRUBIN 0.3 mg/dL (0.2-1.3); TOTAL PROTEIN 5.7 g/dL (6.3-8.2)
[2018-09-29 23:03] LABS: HEMATOCRIT 29.6 % (37.0-47.0); HEMOGLOBIN 8.8 g/dL (12.5-16.0); MEAN CELL VOLUME 93 fl (78-100); MEAN CORPUSCULAR HEMOGLOBIN 28 pg (27-31); MEAN CORPUSCULAR HGB CONC 30 g/dL (33-37); RED BLOOD COUNT 3.17 M/mm3 (4.10-5.30); WHITE BLOOD COUNT 7.5 K/mm3 (4.8-10.8)
[2018-09-29 23:04] LABS: MEAN PLATELET VOLUME 10.9 fl (7.4-10.4); PLATELET COUNT 280 K/mm3 (130-400); RED CELL DISTRIBUTION WIDTH 17.4 % (11.5-14.5)
[2018-09-29 23:06] LABS: LYMPHOCYTE 13 % (20-51); MONOCYTE 11 % (3-10); NEUTROPHILS 72 % (42-75)
== END ==
LOC: LAB 16:43
PROVIDERS: Internal Medicine Hematology & Oncology
DX: C91.10 Chronic lymphocytic leukemia of B-cell type not having achieved remission (principal); C85.90 Non-Hodgkin lymphoma, unspecified, unspecified site; M81.0 Age-related osteoporosis without current pathological fracture

== ENCOUNTER 2018-10-01 10:53 | Emergency (ER) | payer MEDICARE, OTHER ==
[~2018-10-01] VITALS: Wt 65.9 kg
[~2018-10-01 10:53] MED LIST changes: -ACETAMINOPHEN500 M5 PO; -ALBUTEROL2.5 MG/3 M IH; -GOOD NEIGH1200 MG/15 PO; -PYRIDIUM100 M1 PO; -ZOFRAN ODT4 MG PO
[2018-10-01 11:43] LABS: URINE APPEARANCE HAZY; URINE BILIRUBIN NEGATIVE (NEGATIVE); URINE BLOOD 250 ery/uL (NEGATIVE); URINE COLOR YELLOW; URINE GLUCOSE NEGATIVE (NEGATIVE); URINE KETONE NEGATIVE (NEGATIVE); URINE LEUKOCYTE ESTERASE 2+ (NEGATIVE); URINE NITRATE NEGATIVE (NEGATIVE); URINE PROTEIN(semi-quant) TRACE mg/dL (NEGATIVE); URINE UROBILINOGEN NORMAL (NORMAL); URINE WBC >50 /hpf (0-3)
[2018-10-01 11:44] LABS: URINE MUCUS PRESENT (NOT PRESENT)
[2018-10-01] MEDS ORDERED: MACROBID 100 M100 MG PO (11:50)
[2018-10-01 12:21] VITALS: BP 169/68
[2018-10-01] MEDS ORDERED: IMBRUVICA280 MG PO (13:13)
[2018-10-01] MEDS ORDERED: ACETAMINOPHEN500 M5 PO (13:14)
[2018-10-01] MEDS ORDERED: GOOD NEIGH1200 MG/15 PO (13:15)
[2018-10-01] MEDS ORDERED: ALBUTEROL2.5 MG/3 M IH (13:15)
[2018-10-01] MEDS ORDERED: ZOFRAN ODT4 MG PO (13:16)
[2018-10-01] MEDS ORDERED: PYRIDIUM100 M1 PO (13:17)
[2018-10-01] MEDS ORDERED: TRAMADOL 50 MG TAB PO (13:17)
== END 2018-10-01 12:33 | disposition home or self-care (01) ==
LOC: ED 10:53
PROVIDERS: Family Medicine
DX: N30.90 Cystitis, unspecified without hematuria (principal); N95.2 Postmenopausal atrophic vaginitis; F03.90 Unspecified dementia, unspecified severity, without behavioral disturbance, psychotic disturbance, mood disturbance, and anxiety; C91.10 Chronic lymphocytic leukemia of B-cell type not having achieved remission; Z86.718 Personal history of other venous thrombosis and embolism; Z90.710 Acquired absence of both cervix and uterus

== ENCOUNTER → 2018-10-04 | Outpatient (CLI) | payer MEDICARE, OTHER ==
[2018-10-01 12:21] VITALS: BP 169/68
[~2018-10-04] MED LIST changes: +ACETAMINOPHEN500 M5 PO; +ALBUTEROL2.5 MG/3 M IH; +GOOD NEIGH1200 MG/15 PO; +PYRIDIUM100 M1 PO; +ZOFRAN ODT4 MG PO
[2018-10-04 12:03] LABS: HEMATOCRIT 30.4 % (37.0-47.0); MEAN CELL VOLUME 94 fl (78-100); MEAN CORPUSCULAR HEMOGLOBIN 28 pg (27-31); MEAN CORPUSCULAR HGB CONC 30 g/dL (33-37); MEAN PLATELET VOLUME 10.3 fl (7.4-10.4); PLATELET COUNT 232 K/mm3 (130-400); RED BLOOD COUNT 3.24 M/mm3 (4.10-5.30); RED CELL DISTRIBUTION WIDTH 17.1 % (11.5-14.5); WHITE BLOOD COUNT 10.3 K/mm3 (4.8-10.8)
[2018-10-04 12:10] LABS: ALBUMIN 3.2 g/dL (3.5-5.0); CALCIUM 8.4 mg/dL (8.4-10.2); POTASSIUM 4.7 mmol/L (3.6-5.0); TOTAL BILIRUBIN 0.6 mg/dL (0.2-1.3)
[2018-10-04 12:34] LABS: LYMPHOCYTE 9 % (20-51); MONOCYTE 10 % (3-10); NEUTROPHILS 81 % (42-75)
[2018-10-04 12:35] LABS: HYPOCHROMIA 1+
== END ==
LOC: LAB 11:28
PROVIDERS: Family Medicine
DX: C91.10 Chronic lymphocytic leukemia of B-cell type not having achieved remission (principal); N39.0 Urinary tract infection, site not specified

== ENCOUNTER → 2018-10-05 | Outpatient (CLI) | payer MEDICARE, OTHER ==
[2018-10-01 12:21] VITALS: BP 169/68
[2018-10-06 09:53] LABS: URINE WBC >50 /hpf (0-3)
== END ==
LOC: LAB 09:37
PROVIDERS: Family Medicine
DX: R50.9 Fever, unspecified (principal)

== ENCOUNTER 2018-10-06 09:11 | Emergency (ER) | payer MEDICARE, OTHER ==
[~2018-10-06] VITALS: Wt 64.8 kg
[2018-10-06 10:12] LABS: HEMATOCRIT 29.1 % (37.0-47.0); HEMOGLOBIN 8.7 g/dL (12.5-16.0); MEAN CELL VOLUME 93 fl (78-100); MEAN CORPUSCULAR HEMOGLOBIN 28 pg (27-31); MEAN CORPUSCULAR HGB CONC 30 g/dL (33-37); MEAN PLATELET VOLUME 10.5 fl (7.4-10.4); PLATELET COUNT 211 K/mm3 (130-400); RED BLOOD COUNT 3.12 M/mm3 (4.10-5.30); RED CELL DISTRIBUTION WIDTH 16.8 % (11.5-14.5)
[2018-10-06 10:29] LABS: CALCIUM 8.4 mg/dL (8.4-10.2); POTASSIUM 4.4 mmol/L (3.6-5.0); TOTAL BILIRUBIN 0.4 mg/dL (0.2-1.3); TOTAL PROTEIN 5.7 g/dL (6.3-8.2)
[2018-10-06 10:31] LABS: BAND 1 % (0-10); LYMPHOCYTE 11 % (20-51); MONOCYTE 9 % (3-10); NEUTROPHILS 77 % (42-75)
[2018-10-06 11:11] LABS: URINE APPEARANCE CLOUDY; URINE BILIRUBIN NEGATIVE (NEGATIVE); URINE BLOOD 250 ery/uL (NEGATIVE); URINE COLOR YELLOW; URINE GLUCOSE NEGATIVE (NEGATIVE); URINE KETONE NEGATIVE (NEGATIVE); URINE LEUKOCYTE ESTERASE 2+ (NEGATIVE); URINE NITRATE POSITIVE (NEGATIVE); URINE PROTEIN(semi-quant) 2+ mg/dL (NEGATIVE); URINE UROBILINOGEN NORMAL (NORMAL); URINE WBC >50 /hpf (0-3)
[2018-10-06 13:33] LABS: HEMATOCRIT 32.5 % (37.0-47.0); HEMOGLOBIN 9.6 g/dL (12.5-16.0)
[2018-10-06 13:45] LABS: CALCIUM 8.4 mg/dL (8.4-10.2); POTASSIUM 4.5 mmol/L (3.6-5.0)
[2018-10-06 14:34] VITALS: BP 153/58
== END 2018-10-06 14:20 | disposition home or self-care (01) ==
LOC: ED 09:11
PROVIDERS: Nurse Practitioner Primary Care
DX: E86.0 Dehydration (principal); N39.0 Urinary tract infection, site not specified; I12.9 Hypertensive chronic kidney disease with stage 1 through stage 4 chronic kidney disease, or unspecified chronic kidney disease; N18.9 Chronic kidney disease, unspecified; D64.9 Anemia, unspecified; F03.90 Unspecified dementia, unspecified severity, without behavioral disturbance, psychotic disturbance, mood disturbance, and anxiety; C95.90 Leukemia, unspecified not having achieved remission; Z88.0 Allergy status to penicillin; Z88.2 Allergy status to sulfonamides
CPT/HCPCS: A4216; J0696; J7030

== ENCOUNTER → 2018-10-09 | Outpatient (CLI) | payer MEDICARE, OTHER ==
[2018-10-06 14:34] VITALS: BP 153/58
[2018-10-09 15:33] LABS: HEMATOCRIT 30.5 % (37.0-47.0); HEMOGLOBIN 8.9 g/dL (12.5-16.0); MEAN PLATELET VOLUME 10.2 fl (7.4-10.4); RED BLOOD COUNT 3.23 M/mm3 (4.10-5.30); RED CELL DISTRIBUTION WIDTH 17.1 % (11.5-14.5); WHITE BLOOD COUNT 7.4 K/mm3 (4.8-10.8)
[2018-10-09 15:40] LABS: CALCIUM 8.4 mg/dL (8.4-10.2); POTASSIUM 4.4 mmol/L (3.6-5.0)
== END ==
LOC: LAB 15:07
PROVIDERS: Nurse Practitioner Primary Care
DX: N39.0 Urinary tract infection, site not specified (principal); E86.0 Dehydration

== ENCOUNTER → 2018-10-16 | Outpatient (CLI) | payer MEDICARE, OTHER ==
[2018-10-06 14:34] VITALS: BP 153/58
[2018-10-16 11:55] LABS: HEMATOCRIT 30.6 % (37.0-47.0); HEMOGLOBIN 8.8 g/dL (12.5-16.0); MEAN CELL VOLUME 94 fl (78-100); MEAN CORPUSCULAR HEMOGLOBIN 27 pg (27-31); MEAN PLATELET VOLUME 11.5 fl (7.4-10.4); PLATELET COUNT 231 K/mm3 (130-400); RED BLOOD COUNT 3.25 M/mm3 (4.10-5.30); RED CELL DISTRIBUTION WIDTH 17.9 % (11.5-14.5); WHITE BLOOD COUNT 8.7 K/mm3 (4.8-10.8)
[2018-10-16 12:00] LABS: MEAN CORPUSCULAR HGB CONC 29 g/dL (33-37)
[2018-10-16 12:14] LABS: CALCIUM 8.8 mg/dL (8.4-10.2); POTASSIUM 4.9 mmol/L (3.6-5.0); TOTAL BILIRUBIN 0.4 mg/dL (0.2-1.3); TOTAL PROTEIN 5.7 g/dL (6.3-8.2)
[2018-10-16 13:48] LABS: LYMPHOCYTE 16 % (20-51); MONOCYTE 12 % (3-10); NEUTROPHILS 71 % (42-75)
[2018-10-16 13:49] LABS: HYPOCHROMIA 2+
== END ==
LOC: LAB 10:36
PROVIDERS: Family Medicine
DX: N12 Tubulo-interstitial nephritis, not specified as acute or chronic (principal); R78.81 Bacteremia

== ENCOUNTER → 2018-10-18 | Outpatient (CLI) | payer MEDICARE, OTHER ==
[2018-10-06 14:34] VITALS: BP 153/58
[2018-10-18 10:55] LABS: URINE APPEARANCE CLOUDY; URINE COLOR YELLOW; URINE PROTEIN(semi-quant) 2+ mg/dL (NEGATIVE)
[2018-10-18 10:56] LABS: URINE BILIRUBIN NEGATIVE (NEGATIVE); URINE BLOOD 50 ery/uL (NEGATIVE); URINE GLUCOSE NEGATIVE (NEGATIVE); URINE KETONE NEGATIVE (NEGATIVE); URINE LEUKOCYTE ESTERASE 2+ (NEGATIVE); URINE NITRATE NEGATIVE (NEGATIVE); URINE UROBILINOGEN NORMAL (NORMAL)
[2018-10-18 10:57] LABS: URINE WBC >50 /hpf (0-3)
== END ==
LOC: LAB 08:47
PROVIDERS: Family Medicine
DX: N12 Tubulo-interstitial nephritis, not specified as acute or chronic (principal)

== ENCOUNTER → 2018-10-21 | Outpatient (CLI) | payer MEDICARE, OTHER ==
[2018-10-06 14:34] VITALS: BP 153/58
[2018-10-21 10:56] LABS: HEMATOCRIT 31.9 % (37.0-47.0); HEMOGLOBIN 9.3 g/dL (12.5-16.0); MEAN CELL VOLUME 96 fl (78-100); MEAN CORPUSCULAR HEMOGLOBIN 28 pg (27-31); MEAN PLATELET VOLUME 10.7 fl (7.4-10.4); PLATELET COUNT 231 K/mm3 (130-400); RED BLOOD COUNT 3.33 M/mm3 (4.10-5.30); RED CELL DISTRIBUTION WIDTH 17.3 % (11.5-14.5); WHITE BLOOD COUNT 8.4 K/mm3 (4.8-10.8)
[2018-10-21 11:11] LABS: ALBUMIN 2.8 g/dL (3.5-5.0); CALCIUM 8.7 mg/dL (8.4-10.2); POTASSIUM 5.2 mmol/L (3.6-5.0); TOTAL BILIRUBIN 0.5 mg/dL (0.2-1.3); TOTAL PROTEIN 5.2 g/dL (6.3-8.2)
[2018-10-21 12:31] LABS: MEAN CORPUSCULAR HGB CONC 29 g/dL (33-37)
[2018-10-21 12:32] LABS: LYMPHOCYTE 14 % (20-51); MONOCYTE 10 % (3-10); NEUTROPHILS 73 % (42-75)
[2018-10-21 12:33] LABS: HYPOCHROMIA 2+
== END ==
LOC: LAB 10:34
PROVIDERS: Internal Medicine Hematology & Oncology
DX: C91.10 Chronic lymphocytic leukemia of B-cell type not having achieved remission (principal); C83.80 Other non-follicular lymphoma, unspecified site; M81.0 Age-related osteoporosis without current pathological fracture

== ENCOUNTER 2018-11-02 16:49 | Emergency (ER) | payer MEDICARE, OTHER ==
[2018-11-02 17:56] LABS: HEMATOCRIT 32.5 % (37.0-47.0); HEMOGLOBIN 9.8 g/dL (12.5-16.0); MEAN CELL VOLUME 94 fl (78-100); MEAN CORPUSCULAR HEMOGLOBIN 28 pg (27-31); MEAN CORPUSCULAR HGB CONC 30 g/dL (33-37); MEAN PLATELET VOLUME 11.5 fl (7.4-10.4); PLATELET COUNT 192 K/mm3 (130-400); RED BLOOD COUNT 3.46 M/mm3 (4.10-5.30); RED CELL DISTRIBUTION WIDTH 16.8 % (11.5-14.5)
[2018-11-02 18:16] LABS: ALBUMIN 3.1 g/dL (3.5-5.0); POTASSIUM 4.8 mmol/L (3.6-5.0); TOTAL BILIRUBIN 0.5 mg/dL (0.2-1.3); TOTAL PROTEIN 5.9 g/dL (6.3-8.2)
[2018-11-02 18:41] LABS: URINE APPEARANCE HAZY; URINE COLOR LIGHT YELLOW
[2018-11-02 18:42] LABS: URINE BILIRUBIN NEGATIVE (NEGATIVE); URINE BLOOD 250 ery/uL (NEGATIVE); URINE GLUCOSE NEGATIVE (NEGATIVE); URINE KETONE NEGATIVE (NEGATIVE); URINE LEUKOCYTE ESTERASE 2+ (NEGATIVE); URINE NITRATE NEGATIVE (NEGATIVE); URINE PROTEIN(semi-quant) TRACE mg/dL (NEGATIVE); URINE UROBILINOGEN NORMAL (NORMAL)
[2018-11-02 18:43] LABS: URINE WBC >50 /hpf (0-3)
[2018-11-02] MEDS ORDERED: PREMARIN30 GM VG (18:46)
[2018-11-02] MEDS ORDERED: ANTI-DIARRHEA2 MG PO (18:47)
[2018-11-02 19:52] LABS: LYMPHOCYTE 10 % (20-51); MONOCYTE 4 % (3-10); NEUTROPHILS 86 % (42-75)
[2018-11-02 20:32] VITALS: BP 168/59
== END 2018-11-02 20:32 | disposition other institution (70) ==
LOC: ED 16:49
PROVIDERS: Nurse Practitioner Family
DX: R51 Headache (principal); R00.1 Bradycardia, unspecified; E86.0 Dehydration; F03.90 Unspecified dementia, unspecified severity, without behavioral disturbance, psychotic disturbance, mood disturbance, and anxiety; D64.9 Anemia, unspecified; I12.9 Hypertensive chronic kidney disease with stage 1 through stage 4 chronic kidney disease, or unspecified chronic kidney disease; N18.9 Chronic kidney disease, unspecified; N39.0 Urinary tract infection, site not specified; R53.81 Other malaise
CPT/HCPCS: J2405; J7030

== ENCOUNTER 2018-11-02 20:32 | Inpatient (IN) | payer MEDICARE, OTHER ==
[~2018-11-02] VITALS: Ht 165.1 cm; Wt 66.4 kg
[~2018-11-02 20:32] MED LIST changes: +ANTI-DIARRHEA2 MG PO
[2018-11-02 21:55] VITALS: BP 168/59
[2018-11-03 03:00] VITALS: BP 157/67
[2018-11-03 06:06] VITALS: BP 112/60; BP 166/72
[2018-11-03 10:44] LABS: HEMATOCRIT 31.6 % (37.0-47.0); HEMOGLOBIN 9.3 g/dL (12.5-16.0); MEAN CELL VOLUME 97 fl (78-100); MEAN CORPUSCULAR HEMOGLOBIN 28 pg (27-31); MEAN PLATELET VOLUME 11.1 fl (7.4-10.4); PLATELET COUNT 199 K/mm3 (130-400); RED BLOOD COUNT 3.27 M/mm3 (4.10-5.30); RED CELL DISTRIBUTION WIDTH 16.9 % (11.5-14.5); WHITE BLOOD COUNT 12.3 K/mm3 (4.8-10.8)
[2018-11-03 10:48] LABS: MEAN CORPUSCULAR HGB CONC 29 g/dL (33-37)
[2018-11-03 10:56] LABS: LYMPHOCYTE 10 % (20-51); MONOCYTE 4 % (3-10); NEUTROPHILS 86 % (42-75)
[2018-11-03 10:57] VITALS: BP 162/73
[2018-11-03 10:59] LABS: CALCIUM 8.4 mg/dL (8.4-10.2); POTASSIUM 4.9 mmol/L (3.6-5.0)
[2018-11-03 14:56] VITALS: BP 159/71
[2018-11-03 18:10] VITALS: BP 162/63
[2018-11-03 23:00] VITALS: BP 129/59
[2018-11-04 02:49] VITALS: BP 162/70
[2018-11-04 06:27] VITALS: BP 181/80
[2018-11-04 10:56] VITALS: BP 144/71
[2018-11-04 14:59] VITALS: BP 167/85
[2018-11-04 18:24] VITALS: BP 154/76
[2018-11-04 22:32] VITALS: BP 166/68
[2018-11-05 02:24] VITALS: BP 181/78
[2018-11-05 06:23] VITALS: BP 179/73
[2018-11-05 09:35] LABS: HEMATOCRIT 31.8 % (37.0-47.0); HEMOGLOBIN 9.1 g/dL (12.5-16.0); MEAN CELL VOLUME 97 fl (78-100); MEAN CORPUSCULAR HEMOGLOBIN 28 pg (27-31); PLATELET COUNT 205 K/mm3 (130-400); RED BLOOD COUNT 3.29 M/mm3 (4.10-5.30); RED CELL DISTRIBUTION WIDTH 17.3 % (11.5-14.5); WHITE BLOOD COUNT 8.8 K/mm3 (4.8-10.8)
[2018-11-05 09:40] LABS: ALBUMIN 2.7 g/dL (3.5-5.0); CALCIUM 8.5 mg/dL (8.4-10.2); POTASSIUM 4.2 mmol/L (3.6-5.0); TOTAL BILIRUBIN 0.3 mg/dL (0.2-1.3); TOTAL PROTEIN 5.4 g/dL (6.3-8.2)
[2018-11-05 09:47] LABS: MEAN CORPUSCULAR HGB CONC 29 g/dL (33-37)
[2018-11-05] MEDS ORDERED: ROCEPHIN 2 G2 G/VIAL IM (10:16)
[2018-11-05 10:21] VITALS: BP 179/73
[2018-11-05 10:26] LABS: LYMPHOCYTE 4 % (20-51); MONOCYTE 7 % (3-10); NEUTROPHILS 85 % (42-75)
[2018-11-05 11:04] VITALS: BP 173/69
[2018-11-05 13:45] VITALS: BP 157/57
== END 2018-11-05 14:05 | DRG 125 ==
LOC: MED/SURG 20:32
PROVIDERS: Family Medicine; ADMIT Nurse Practitioner Family
DX: B30.9 Viral conjunctivitis, unspecified (principal); N39.0 Urinary tract infection, site not specified; C91.10 Chronic lymphocytic leukemia of B-cell type not having achieved remission; E86.0 Dehydration; R00.1 Bradycardia, unspecified; N18.9 Chronic kidney disease, unspecified; D63.1 Anemia in chronic kidney disease; D63.0 Anemia in neoplastic disease; G43.909 Migraine, unspecified, not intractable, without status migrainosus; R53.81 Other malaise; M81.0 Age-related osteoporosis without current pathological fracture; Z86.718 Personal history of other venous thrombosis and embolism; E66.9 Obesity, unspecified; G30.9 Alzheimer's disease, unspecified; F02.80 Dementia in other diseases classified elsewhere, unspecified severity, without behavioral disturbance, psychotic disturbance, mood disturbance, and anxiety; Z88.0 Allergy status to penicillin; Z88.2 Allergy status to sulfonamides
CPT/HCPCS: A4216; J0696; J2405; J2930; J7030

== ENCOUNTER → 2018-11-06 | Outpatient (CLI) | payer MEDICARE, OTHER ==
[~2018-11-06] MED LIST changes: +ROCEPHIN 2 G2 G/VIAL IM
[2018-11-06 17:08] VITALS: BP 144/49
[2018-11-06 17:54] LABS: HEMATOCRIT 30.6 % (37.0-47.0); HEMOGLOBIN 8.9 g/dL (12.5-16.0); MEAN PLATELET VOLUME 11.3 fl (7.4-10.4); RED BLOOD COUNT 3.2 M/mm3 (4.10-5.30); RED CELL DISTRIBUTION WIDTH 17.1 % (11.5-14.5); WHITE BLOOD COUNT 8.1 K/mm3 (4.8-10.8)
[2018-11-06 18:25] LABS: CALCIUM 9.4 mg/dL (8.4-10.2); POTASSIUM 4.1 mmol/L (3.6-5.0)
== END ==
LOC: LAB 17:16
PROVIDERS: Nurse Practitioner Primary Care
DX: M31.6 Other giant cell arteritis (principal)

== ENCOUNTER 2018-11-07 19:56 | Outpatient (RCR) | payer MEDICARE, OTHER ==
[2018-11-06 17:08] VITALS: BP 144/49
[2018-11-06 17:30] VITALS: BP 149/60
[~2018-11-07] VITALS: Ht 167.6 cm; Wt 80.9 kg
[2018-11-07 10:05] VITALS: BP 162/72
[2018-11-07 20:31] VITALS: BP 149/65
[2018-11-07 20:52] VITALS: BP 158/65
[2018-12-19] MEDS ORDERED: CIPRO250 M1 PO (18:52)
[2018-12-19] MEDS ORDERED: COMBIGAN 0.2%-0.5 ML OS (18:54)
[2018-12-19] MEDS ORDERED: GAVILAX17 GM/Dose PO (18:56)
[2018-12-25] MEDS ORDERED: AMIODARONE HCL100 MG PO (14:54)
[2018-12-25] MEDS ORDERED: ASPIRIN E.C. 8181 MG PO (14:54)
[2018-12-25] MEDS ORDERED: COMBIGAN 0.2%-0.5 ML OS (14:55)
[2018-12-25] MEDS ORDERED: KLOR-CON 1010 MEQ PO (14:58)
[2018-12-25] MEDS ORDERED: FIRVANQ50 MG/1 ML PO (15:00)
[2018-12-28] MEDS ORDERED: VANCOMYCIN HCL5 GM PO (08:51)
[2019-01-12] MEDS ORDERED: CRANBERRY FRUI425 MG PO (13:22)
[2019-01-12] MEDS ORDERED: MOXEZA 3 ML3 ML OS (13:26)
[2019-01-14] MEDS ORDERED: IMODIUM 2MG CAPS2 MG PO (10:59)
[2019-01-14] MEDS ORDERED: CEPHALEXIN500 M1 PO (11:12)
== END 2019-02-04 ==
LOC: AMSURD
DX: M31.6 Other giant cell arteritis (principal)
CPT/HCPCS: J2930

== ENCOUNTER → 2018-11-08 | Day surgery (SDC) | payer MEDICARE, OTHER ==
[2018-11-07 20:52] VITALS: BP 158/65
== END ==
LOC: MSO 11:04 → EDSTATUS 14:30
DX: H57.12 Ocular pain, left eye (principal)

== ENCOUNTER → 2018-11-15 | Outpatient (CLI) | payer MEDICARE, OTHER ==
[~2018-11-15] VITALS: Ht 167.6 cm; Wt 80.9 kg
[2018-11-15 13:18] VITALS: BP 180/65
== END ==
LOC: AMSURD 13:04 → LAB 13:04
DX: Z45.2 Encounter for adjustment and management of vascular access device (principal)
CPT/HCPCS: J1644

== ENCOUNTER → 2018-11-22 | Outpatient (CLI) | payer MEDICARE, OTHER ==
[2018-11-15 13:18] VITALS: BP 180/65
[2018-11-22 17:28] LABS: URINE APPEARANCE CLOUDY; URINE COLOR YELLOW
[2018-11-22 17:29] LABS: URINE BILIRUBIN NEGATIVE (NEGATIVE); URINE BLOOD 50 ery/uL (NEGATIVE); URINE GLUCOSE NEGATIVE (NEGATIVE); URINE KETONE NEGATIVE (NEGATIVE); URINE LEUKOCYTE ESTERASE 2+ (NEGATIVE); URINE NITRATE NEGATIVE (NEGATIVE); URINE PROTEIN(semi-quant) 1+ mg/dL (NEGATIVE); URINE UROBILINOGEN NORMAL (NORMAL); URINE WBC >50 /hpf (0-3)
== END ==
LOC: LAB 16:18
PROVIDERS: Family Medicine
DX: N12 Tubulo-interstitial nephritis, not specified as acute or chronic (principal); R78.81 Bacteremia

== ENCOUNTER → 2018-12-01 | Outpatient (CLI) | payer MEDICARE, OTHER ==
[2018-11-15 13:18] VITALS: BP 180/65
[2018-12-01 17:36] LABS: HEMATOCRIT 31.3 % (37.0-47.0); HEMOGLOBIN 9.3 g/dL (12.5-16.0); MEAN CELL VOLUME 97 fl (78-100); MEAN CORPUSCULAR HEMOGLOBIN 29 pg (27-31); MEAN CORPUSCULAR HGB CONC 30 g/dL (33-37); MEAN PLATELET VOLUME 10.3 fl (7.4-10.4); PLATELET COUNT 229 K/mm3 (130-400); RED BLOOD COUNT 3.23 M/mm3 (4.10-5.30); RED CELL DISTRIBUTION WIDTH 16.5 % (11.5-14.5); WHITE BLOOD COUNT 6.6 K/mm3 (4.8-10.8)
[2018-12-01 18:05] LABS: ALBUMIN 2.8 g/dL (3.5-5.0); CALCIUM 8.5 mg/dL (8.4-10.2); POTASSIUM 4.3 mmol/L (3.6-5.0); TOTAL BILIRUBIN 0.2 mg/dL (0.2-1.3); TOTAL PROTEIN 5.2 g/dL (6.3-8.2)
[2018-12-01 20:13] LABS: BAND 0 % (0-10); LYMPHOCYTE 20 % (20-51); MONOCYTE 5 % (3-10); NEUTROPHILS 71 % (42-75)
== END ==
LOC: LAB 16:44
DX: C91.10 Chronic lymphocytic leukemia of B-cell type not having achieved remission (principal); M81.0 Age-related osteoporosis without current pathological fracture

== ENCOUNTER → 2018-12-06 | Day surgery (SDC) | payer MEDICARE, OTHER ==
[2018-11-15 13:18] VITALS: BP 180/65
== END ==
LOC: MSO 09:44
DX: H26.9 Unspecified cataract (principal); Z88.0 Allergy status to penicillin; Z88.2 Allergy status to sulfonamides
CPT/HCPCS: 00142; A9270-GY; J0171; J3010; V2632

== ENCOUNTER → 2018-12-15 | Outpatient (CLI) | payer MEDICARE, OTHER ==
[2018-11-15 13:18] VITALS: BP 180/65
[~2018-12-15] MED LIST changes: +AMIODARONE HCL100 MG PO; +ASPIRIN E.C. 8181 MG PO; +CIPRO250 M1 PO; +COMBIGAN 0.2%-0.5 ML OS; +FIRVANQ50 MG/1 ML PO; +GAVILAX17 GM/Dose PO; +KLOR-CON 1010 MEQ PO
[2018-12-15 15:09] LABS: URINE APPEARANCE CLOUDY; URINE BLOOD TRACE (NEGATIVE); URINE COLOR ORANGE; URINE GLUCOSE NEGATIVE (NEGATIVE)
[2018-12-15 15:10] LABS: URINE WBC >50 /hpf (0-3)
== END ==
LOC: LAB 14:33
PROVIDERS: Family Medicine
DX: N30.00 Acute cystitis without hematuria (principal); R39.89 Other symptoms and signs involving the genitourinary system

== ENCOUNTER 2018-12-19 18:08 | Emergency (ER) | payer MEDICARE, OTHER ==
[~2018-12-19 18:08] MED LIST changes: -AMIODARONE HCL100 MG PO; -ASPIRIN E.C. 8181 MG PO; -CIPRO250 M1 PO; -COMBIGAN 0.2%-0.5 ML OS; -FIRVANQ50 MG/1 ML PO; -GAVILAX17 GM/Dose PO; -KLOR-CON 1010 MEQ PO
[2018-12-19] MEDS ORDERED: CIPRO250 M1 PO (18:52)
[2018-12-19] MEDS ORDERED: COMBIGAN 0.2%-0.5 ML OS (18:54)
[2018-12-19] MEDS ORDERED: GAVILAX17 GM/Dose PO (18:56)
[2018-12-19 19:51] LABS: HEMATOCRIT 33.4 % (37.0-47.0); HEMOGLOBIN 10.4 g/dL (12.5-16.0); MEAN CELL VOLUME 93 fl (78-100); MEAN CORPUSCULAR HEMOGLOBIN 29 pg (27-31); MEAN CORPUSCULAR HGB CONC 31 g/dL (33-37); MEAN PLATELET VOLUME 10.8 fl (7.4-10.4); PLATELET COUNT 242 K/mm3 (130-400); RED BLOOD COUNT 3.59 M/mm3 (4.10-5.30); WHITE BLOOD COUNT 16.6 K/mm3 (4.8-10.8)
[2018-12-19 20:08] LABS: ALBUMIN 2.6 g/dL (3.4-4.8); CALCIUM 7.8 mg/dL (8.4-10.2); POTASSIUM 3.5 mmol/L (3.5-5.1); TOTAL BILIRUBIN 0.4 mg/dL (0.2-1.2); TOTAL PROTEIN 4.3 g/dL (6.2-8.1)
[2018-12-19 20:20] LABS: URINE APPEARANCE CLOUDY; URINE BILIRUBIN NEGATIVE (NEGATIVE); URINE BLOOD 50 ery/uL (NEGATIVE); URINE COLOR YELLOW; URINE GLUCOSE NEGATIVE (NEGATIVE); URINE KETONE NEGATIVE (NEGATIVE); URINE LEUKOCYTE ESTERASE 2+ (NEGATIVE); URINE NITRATE NEGATIVE (NEGATIVE); URINE PROTEIN(semi-quant) 2+ mg/dL (NEGATIVE); URINE UROBILINOGEN NORMAL (NORMAL); URINE WBC >50 /hpf (0-3)
[2018-12-19 20:46] LABS: BAND 9 % (0-10); LYMPHOCYTE 3 % (20-51); MONOCYTE 4 % (3-10); NEUTROPHILS 83 % (42-75)
[2018-12-19 20:47] LABS: OVALOCYTES 1+
[2018-12-19 21:45] VITALS: BP 147/81
== END 2018-12-19 21:45 | disposition short-term general hospital (02) ==
LOC: ED 18:08
PROVIDERS: Nurse Practitioner Family
DX: N17.9 Acute kidney failure, unspecified (principal); N12 Tubulo-interstitial nephritis, not specified as acute or chronic; E86.0 Dehydration; N39.0 Urinary tract infection, site not specified; I10 Essential (primary) hypertension; C91.10 Chronic lymphocytic leukemia of B-cell type not having achieved remission; F03.90 Unspecified dementia, unspecified severity, without behavioral disturbance, psychotic disturbance, mood disturbance, and anxiety; M31.6 Other giant cell arteritis; R60.0 Localized edema; Z87.442 Personal history of urinary calculi; Z90.712 Acquired absence of cervix with remaining uterus; Z90.49 Acquired absence of other specified parts of digestive tract; Z88.0 Allergy status to penicillin; Z88.2 Allergy status to sulfonamides
CPT/HCPCS: J0744; J2405; J7030

== ENCOUNTER 2018-12-25 14:08 | Inpatient (IN) | payer MEDICARE, OTHER ==
[~2018-12-25] VITALS: Ht 165.1 cm; Wt 65.9 kg
[~2018-12-25 14:08] MED LIST changes: +CIPRO250 M1 PO; +COMBIGAN 0.2%-0.5 ML OS; +GAVILAX17 GM/Dose PO
[2018-12-25 14:35] VITALS: BP 143/70
[2018-12-25] MEDS ORDERED: ASPIRIN E.C. 8181 MG PO (14:54)
[2018-12-25] MEDS ORDERED: AMIODARONE HCL100 MG PO (14:54)
[2018-12-25] MEDS ORDERED: COMBIGAN 0.2%-0.5 ML OS (14:55)
[2018-12-25] MEDS ORDERED: KLOR-CON 1010 MEQ PO (14:58)
[2018-12-25] MEDS ORDERED: FIRVANQ50 MG/1 ML PO (15:00)
[2018-12-25 17:16] LABS: HEMATOCRIT 30.7 % (37.0-47.0); HEMOGLOBIN 9.4 g/dL (12.5-16.0); MEAN CELL VOLUME 93 fl (78-100); MEAN CORPUSCULAR HEMOGLOBIN 29 pg (27-31); MEAN CORPUSCULAR HGB CONC 31 g/dL (33-37); MEAN PLATELET VOLUME 10.8 fl (7.4-10.4); PLATELET COUNT 222 K/mm3 (130-400); RED CELL DISTRIBUTION WIDTH 17.7 % (11.5-14.5); WHITE BLOOD COUNT 16.8 K/mm3 (4.8-10.8)
[2018-12-25 17:41] LABS: ALBUMIN 2.2 g/dL (3.4-4.8); CALCIUM 8.1 mg/dL (8.4-10.2); POTASSIUM 4.5 mmol/L (3.5-5.1); TOTAL BILIRUBIN 0.2 mg/dL (0.2-1.2); TOTAL PROTEIN 3.8 g/dL (6.2-8.1)
[2018-12-25 18:17] LABS: URINE APPEARANCE CLOUDY; URINE COLOR YELLOW
[2018-12-25 18:18] LABS: URINE BILIRUBIN NEGATIVE (NEGATIVE); URINE BLOOD TRACE (NEGATIVE); URINE GLUCOSE NEGATIVE (NEGATIVE); URINE KETONE NEGATIVE (NEGATIVE); URINE LEUKOCYTE ESTERASE 2+ (NEGATIVE); URINE NITRATE NEGATIVE (NEGATIVE); URINE PROTEIN(semi-quant) 1+ mg/dL (NEGATIVE); URINE UROBILINOGEN NORMAL (NORMAL); URINE WBC >50 /hpf (0-3)
[2018-12-25 18:19] LABS: LYMPHOCYTE 4 % (20-51); METAMYELOCYTE 1 % (0-0); MONOCYTE 14 % (3-10); MYELOCYTE 1 % (0-0); NEUTROPHILS 77 % (42-75); OVALOCYTES 1+
[2018-12-25 18:25] VITALS: BP 153/61
[2018-12-25 19:04] VITALS: BP 153/61
[2018-12-26 06:27] VITALS: BP 147/60
[2018-12-26 18:48] VITALS: BP 112/46
[2018-12-27 06:29] VITALS: BP 125/51
[2018-12-27 14:18] VITALS: BP 115/42
[2018-12-27 18:29] VITALS: BP 118/46
[2018-12-28 06:13] VITALS: BP 146/47
[2018-12-28] MEDS ORDERED: VANCOMYCIN HCL5 GM PO (08:51)
== END 2018-12-28 09:44 | disposition home or self-care (01) | DRG 947 ==
LOC: MED/SURG 14:08
PROVIDERS: ADMIT Nurse Practitioner
DX: R53.81 Other malaise (principal); E43 Unspecified severe protein-calorie malnutrition; N17.9 Acute kidney failure, unspecified; N39.0 Urinary tract infection, site not specified; C91.10 Chronic lymphocytic leukemia of B-cell type not having achieved remission; A04.72 Enterocolitis due to Clostridium difficile, not specified as recurrent; E87.2 Acidosis; F03.90 Unspecified dementia, unspecified severity, without behavioral disturbance, psychotic disturbance, mood disturbance, and anxiety; E86.0 Dehydration; E87.6 Hypokalemia; I48.91 Unspecified atrial fibrillation; Z88.0 Allergy status to penicillin; Z88.2 Allergy status to sulfonamides; Z66 Do not resuscitate
CPT/HCPCS: J1650

== ENCOUNTER 2018-12-28 17:37 | Emergency (ER) | payer MEDICARE, OTHER ==
[2018-12-28 06:13] VITALS: BP 146/47
[~2018-12-28 17:37] MED LIST changes: +AMIODARONE HCL100 MG PO; +ASPIRIN E.C. 8181 MG PO; +FIRVANQ50 MG/1 ML PO; +KLOR-CON 1010 MEQ PO; +VANCOMYCIN HCL5 GM PO
== END 2018-12-28 17:40 | disposition left against medical advice (07) ==
LOC: ED 17:37
DX: Z72.89 Other problems related to lifestyle (principal); Z53.21 Procedure and treatment not carried out due to patient leaving prior to being seen by health care provider

== ENCOUNTER 2019-01-12 12:29 | Observation (INO) | payer MEDICARE, OTHER ==
[~2019-01-12] VITALS: Ht 165.1 cm; Wt 63.3 kg
[2019-01-12 13:00] LABS: HEMATOCRIT 29.5 % (37.0-47.0); HEMOGLOBIN 8.7 g/dL (12.5-16.0); MEAN CELL VOLUME 97 fl (78-100); MEAN CORPUSCULAR HEMOGLOBIN 29 pg (27-31); MEAN CORPUSCULAR HGB CONC 30 g/dL (33-37); MEAN PLATELET VOLUME 10.8 fl (7.4-10.4); PLATELET COUNT 285 K/mm3 (130-400); RED BLOOD COUNT 3.03 M/mm3 (4.10-5.30); RED CELL DISTRIBUTION WIDTH 16.1 % (11.5-14.5); WHITE BLOOD COUNT 6.2 K/mm3 (4.8-10.8)
[2019-01-12 13:19] LABS: ALBUMIN 2.7 g/dL (3.4-4.8); CALCIUM 8.8 mg/dL (8.3-10.5); POTASSIUM 4.9 mmol/L (3.5-5.1); TOTAL BILIRUBIN 0.5 mg/dL (0.2-1.2); TOTAL PROTEIN 5.2 g/dL (6.2-8.1)
[2019-01-12] MEDS ORDERED: CRANBERRY FRUI425 MG PO (13:22)
[2019-01-12] MEDS ORDERED: MOXEZA 3 ML3 ML OS (13:26)
[2019-01-12 14:03] LABS: URINE APPEARANCE CLOUDY; URINE BILIRUBIN NEGATIVE (NEGATIVE); URINE BLOOD TRACE (NEGATIVE); URINE COLOR YELLOW; URINE GLUCOSE NEGATIVE (NEGATIVE); URINE KETONE NEGATIVE (NEGATIVE); URINE LEUKOCYTE ESTERASE 2+ (NEGATIVE); URINE NITRATE NEGATIVE (NEGATIVE); URINE PROTEIN(semi-quant) 1+ mg/dL (NEGATIVE); URINE UROBILINOGEN NORMAL (NORMAL)
[2019-01-12 14:04] LABS: URINE WBC >50 /hpf (0-3)
[2019-01-12 14:06] LABS: BAND 2 % (0-10); LYMPHOCYTE 12 % (20-51); MONOCYTE 16 % (3-10); NEUTROPHILS 67 % (42-75)
[2019-01-12 14:09] LABS: HYPOCHROMIA 1+
[2019-01-12 15:20] VITALS: BP 87/28
[2019-01-12 15:23] VITALS: BP 87/28
[2019-01-12 18:26] VITALS: BP 82/39
[2019-01-12 18:30] VITALS: BP 120/53
[2019-01-12 23:12] VITALS: BP 137/53
[2019-01-13 03:25] VITALS: BP 134/55
[2019-01-13 06:08] LABS: HEMATOCRIT 26.3 % (37.0-47.0); MEAN CELL VOLUME 97 fl (78-100); MEAN CORPUSCULAR HEMOGLOBIN 29 pg (27-31); MEAN PLATELET VOLUME 11.1 fl (7.4-10.4); PLATELET COUNT 240 K/mm3 (130-400); WHITE BLOOD COUNT 9.2 K/mm3 (4.8-10.8)
[2019-01-13 06:20] VITALS: BP 118/54
[2019-01-13 06:23] LABS: ALBUMIN 2.1 g/dL (3.4-4.8); CALCIUM 7.9 mg/dL (8.3-10.5); POTASSIUM 4.5 mmol/L (3.5-5.1); TOTAL BILIRUBIN 0.3 mg/dL (0.2-1.2); TOTAL PROTEIN 4.1 g/dL (6.2-8.1)
[2019-01-13 07:01] LABS: HEMOGLOBIN 7.7 g/dL (12.5-16.0); MEAN CORPUSCULAR HGB CONC 29 g/dL (33-37)
[2019-01-13 07:02] LABS: BAND 1 % (0-10); LYMPHOCYTE 11 % (20-51); NEUTROPHILS 72 % (42-75)
[2019-01-13 07:03] LABS: MONOCYTE 16 % (3-10)
[2019-01-13 07:05] LABS: HYPOCHROMIA 2+
[2019-01-13 10:46] VITALS: BP 120/53
[2019-01-13 14:39] VITALS: BP 136/58
[2019-01-13 18:17] VITALS: BP 130/43
[2019-01-13 23:29] VITALS: BP 110/94
[2019-01-14 03:30] VITALS: BP 139/61
[2019-01-14 06:15] VITALS: BP 108/38
[2019-01-14] MEDS ORDERED: IMODIUM 2MG CAPS2 MG PO (10:59)
[2019-01-14] MEDS ORDERED: CEPHALEXIN500 M1 PO (11:12)
[2019-01-14 11:36] VITALS: BP 121/61
[2019-01-14 12:38] VITALS: BP 121/61
== END 2019-01-14 14:20 | disposition hospice, home (50) ==
LOC: ED 12:29 → MED/SURG 14:45 → ED 14:45 → MED/SURG 01-14 14:20
PROVIDERS: ADMIT Nurse Practitioner Primary Care
DX: R41.82 Altered mental status, unspecified (principal); E86.9 Volume depletion, unspecified; N39.0 Urinary tract infection, site not specified; R19.7 Diarrhea, unspecified; C91.10 Chronic lymphocytic leukemia of B-cell type not having achieved remission; L03.116 Cellulitis of left lower limb; L03.115 Cellulitis of right lower limb; M19.90 Unspecified osteoarthritis, unspecified site; M81.0 Age-related osteoporosis without current pathological fracture; Z86.718 Personal history of other venous thrombosis and embolism; E66.9 Obesity, unspecified; G30.9 Alzheimer's disease, unspecified; F02.80 Dementia in other diseases classified elsewhere, unspecified severity, without behavioral disturbance, psychotic disturbance, mood disturbance, and anxiety; Z90.49 Acquired absence of other specified parts of digestive tract; Z90.710 Acquired absence of both cervix and uterus; Z90.722 Acquired absence of ovaries, bilateral; Z90.79 Acquired absence of other genital organ(s); Z79.52 Long term (current) use of systemic steroids; Z79.82 Long term (current) use of aspirin; Z88.0 Allergy status to penicillin; Z88.2 Allergy status to sulfonamides
CPT/HCPCS: A4216; C9113; G0378; J0696; J1650; J3010; J7030

== ENCOUNTER → 2019-01-26 | Outpatient (CLI) | payer MEDICARE, OTHER ==
[2019-01-14 12:38] VITALS: BP 121/61
[~2019-01-26] MED LIST changes: +CEPHALEXIN500 M1 PO; +CRANBERRY FRUI425 MG PO; +IMODIUM 2MG CAPS2 MG PO; +MOXEZA 3 ML3 ML OS
[2019-01-26 15:18] LABS: HEMATOCRIT 30.3 % (37.0-47.0); HEMOGLOBIN 9.1 g/dL (12.5-16.0); MEAN CELL VOLUME 97 fl (78-100); MEAN CORPUSCULAR HEMOGLOBIN 29 pg (27-31); MEAN CORPUSCULAR HGB CONC 30 g/dL (33-37); PLATELET COUNT 163 K/mm3 (130-400); RED BLOOD COUNT 3.13 M/mm3 (4.10-5.30)
[2019-01-26 15:55] LABS: MEAN PLATELET VOLUME 12.3 fl (7.4-10.4); RED CELL DISTRIBUTION WIDTH 18.6 % (11.5-14.5); WHITE BLOOD COUNT 22.5 K/mm3 (4.8-10.8)
[2019-01-26 15:57] LABS: LYMPHOCYTE 11 % (20-51); MONOCYTE 10 % (3-10); NEUTROPHILS 79 % (42-75)
== END ==
LOC: LAB 14:52
DX: C91.10 Chronic lymphocytic leukemia of B-cell type not having achieved remission (principal)

== ENCOUNTER → 2019-01-30 | Outpatient (CLI) | payer MEDICARE, OTHER ==
[2019-01-14 12:38] VITALS: BP 121/61
[2019-01-30 12:15] LABS: URINE APPEARANCE CLOUDY; URINE BILIRUBIN NEGATIVE (NEGATIVE); URINE BLOOD 50 ery/uL (NEGATIVE); URINE COLOR YELLOW; URINE GLUCOSE NEGATIVE (NEGATIVE); URINE KETONE NEGATIVE (NEGATIVE); URINE LEUKOCYTE ESTERASE 2+ (NEGATIVE); URINE NITRATE NEGATIVE (NEGATIVE); URINE PROTEIN(semi-quant) 1+ mg/dL (NEGATIVE); URINE UROBILINOGEN NORMAL (NORMAL); URINE WBC >50 /hpf (0-3)
[2019-01-30 12:16] LABS: URINE MUCUS PRESENT (NOT PRESENT)
== END ==
LOC: LAB 11:56
PROVIDERS: Family Medicine
DX: N39.0 Urinary tract infection, site not specified (principal)